=== PATIENT | female | born 1940 | race Caucasian/White ===

== ENCOUNTER 2016-07-30 18:26 | Emergency (ER) | payer MEDICARE, MEDICAID ==
[~2016-07-30] VITALS: Ht 157.4 cm; Wt 95.3 kg
[~2016-07-30 18:26] MED LIST: ACCU-CHEK AVIVA PLUS; ACID REDUCER; AMBIEN10 MG PO; ASPIRIN ADULT L81 M1 PO; CLONAZEPAM1 MG PO; COLACE100 MG PO; CYCLOBENZAPRINE10 MG PO; CYMBALTA60 MG PO; DILTIAZEM240 M1 PO; DOXYCYCLINE MO100 MG PO; DULOXETINE HCL DR 60; DUONEB 3 MG/3 ML3 M1 INH; DUONEB 3 MG/3 ML3 M1 NEB; FUROSEMIDE40 MG PO; GABAPENTIN600 MG PO; HYDROCODONE BIT1 T11 PO; KLOR-CON M1010 MEQ PO; LORAZEPAM1 MG PO; METFORMIN HCL500 MG PO; OMEPRAZOLE40 MG PO; OXYCODONE-ACETAMINOP; PREDNISONE5 MG PO; PRILOSEC40 M1 PO; ROPINIROLE HCL 1 MG; SIMVASTATIN10 MG PO; SINGULAIR5 MG PO; SYMBICORT1 AE1 INH; ZESTRIL10 MG PO
[2016-07-30] MEDS ORDERED: MECLIZINE HCL25 M2 PO (18:48)
[2016-07-30] MEDS ORDERED: MELATONIN5 M7 PO (18:49)
[2016-07-30] MEDS ORDERED: SINGULAIR10 M1 PO (18:51)
[2016-07-30] MEDS ORDERED: AMBIEN10 M1 JT (18:52)
[2016-07-30] MEDS ORDERED: ZYLOPRIM100 MG PO (18:53)
[2016-07-30] MEDS ORDERED: FOLIXAPURE5000 UNIT PO (18:54)
[2016-07-30] MEDS ORDERED: TURMERIC500 MG PO (18:54)
[2016-07-30] MEDS ORDERED: MAPAP500 MG PO (18:55)
[2016-07-30 19:39] LABS: BASO # 0.1 10*3/uL (0.0-0.1); BASO % 0.8 % (0.0-1.0); EOS # 0.2 10*3/uL (0.0-0.4); EOS % 2.2 % (1.0-4.0); HEMATOCRIT 45.6 % (37.0-47.0); HEMOGLOBIN 14.8 g/dl (12.0-16.0); IG # 0.1 10*3/uL (0.0-0.1); LYMPH # 1.2 10*3/uL (1.3-4.4); LYMPH % 16.6 % (27.0-41.0); MEAN CELL VOLUME 94.6 fl (81.0-99.0); MEAN CORPUSCULAR HGB 30.7 pg (27.0-31.0); MEAN CORPUSCULAR HGB CONC 32.5 g/dl (33.0-37.0); MEAN PLATELET VOLUME 11.2 fl (9.6-12.3); MONO # 0.6 10*3/uL (0.1-1.0); MONO % 8.4 % (3.0-9.0); NEUT # 5.2 10*3/uL (2.3-7.9); NEUT % 71.3 % (47.0-73.0); PLATELET COUNT AUTOMATED 261 10*3/uL (130-400); RED BLOOD COUNT 4.82 10*6/uL (4.10-5.10); RED CELL DISTRI WIDTH 14.5 % (0-14.5); WHITE BLOOD COUNT 7.3 10*3/uL (4.8-10.8)
[2016-07-30 19:54] LABS: ALBUMIN 3.2 gm/dl (3.1-4.5); ALKALINE PHOSPHATASE 128 U/L (45-117); BILIRUBIN, TOTAL 0.3 mg/dl (0.2-1.0); BUN 19 mg/dl (7-24); C-REACTIVE PROTEIN 0.34 MG/DL (0-0.3); CARBON DIOXIDE 28 mmol/L (21-32); CHLORIDE 109 mmol/L (98-107); EST GLOM FILT AFRICAN AMERICAN > 60 ml/min; GLUCOSE 108 mg/dL (65-99); MAGNESIUM 2.1 mg/dL (1.5-2.1); SGOT/AST 17 IU/L (3-35); SGPT/ALT 26 U/L (12-78); SODIUM 144 mmol/L (136-145); TOTAL PROTEIN 6.7 gm/dL (6.4-8.2)
[2016-07-30 19:57] LABS: TROPONIN I < 0.015 ng/ml (<0.5)
[2016-07-30 20:30] VITALS: BP 118/96
[2016-07-30 20:57] LABS: BILIRUBIN NEGATIVE (NEGATIVE); BLOOD NEGATIVE (NEGATIVE); CLARITY CLEAR (CLEAR); COLOR YELLOW (YELLOW); GLUCOSE NEGATIVE (NEGATIVE); KETONE NEGATIVE (NEGATIVE); LEUKO ESTERASE NEGATIVE (NEGATIVE); NITRITE NEGATIVE (NEGATIVE); PROTEIN NEGATIVE (NEGATIVE); UROBILINOGEN 0.2 E.U./dl (0.2-1.0)
[2016-07-30 21:26] LABS: EPITHELIAL CELLS 0-1; URINE REFLEX COMMENT NO (NO)
[2016-08-01] MEDS ORDERED: AMBIEN10 M1 PO (13:23)
[2016-08-01] MEDS ORDERED: NORCO 7.5-3251 EACH PO (16:31)
[2016-08-27] MEDS ORDERED: AMBIEN10 M1 PO (12:37)
[2016-08-27] MEDS ORDERED: BREO ELLIPTA 11 EACH IH (12:38)
[2016-08-27] MEDS ORDERED: OMEGA-3 FLAXS1000 MG PO (12:44)
[2016-08-27] MEDS ORDERED: PERCOCET 325 MG1 TA3 PO (12:46)
[2016-08-29] MEDS ORDERED: ACETAMINOPHEN-H1 TA2 PO (11:17)
== END 2016-07-31 00:23 | disposition home or self-care (01) ==
LOC: ED 18:26
PROVIDERS: Emergency Medicine Emergency Medical Services
DX: M54.40 Lumbago with sciatica, unspecified side (principal); Z79.82 Long term (current) use of aspirin; Z79.899 Other long term (current) drug therapy; Z88.5 Allergy status to narcotic agent; W07.XXXA Fall from chair, initial encounter; Y93.89 Activity, other specified; Y92.009 Unspecified place in unspecified non-institutional (private) residence as the place of occurrence of the external cause; Y99.9 Unspecified external cause status

== ENCOUNTER 2016-08-01 13:06 | Inpatient (IN) | payer MEDICARE, MEDICAID ==
[~2016-08-01] VITALS: Ht 157.5 cm; Wt 95.3 kg
--- NOTE | ~2016-08-01 | PR ---
[place], [place] PROGRESS NOTE NAME: SANCHEZ POLANCO [facility] #: [id number] UNIT #: [id number] ROOM: 416 DOCTOR: ARDEN GEE MD BIRTHDATE: [birth year] DOS: 08/06/2016 SUBJECTIVE: The patient is doing fine without any new complaints. OBJECTIVE: VITAL SIGNS: Blood pressure is 120/72, pulse is 64, respirations 18, temperature 97.4. LUNGS: Diminished breath sounds. HEART: Regular. ABDOMEN: Obese. EXTREMITIES: Without any edema. ASSESSMENT AND PLAN: 1. Severe lumbar degenerative disease with disk bulging and spinal stenosis. Failure to thrive with falls. The patient to go to rehab center. She is undecided as where she is going. Discussed with case management also. I will discharge the patient, pending 2. pre-certification from the insurance company for placement to a residential. ARDEN GEE MD CM:PNTRANS [phone] ARDEN GEE MD 09/10/16 1125 interface
--- NOTE | ~2016-08-01 | PR ---
[place], [place] PROGRESS NOTE NAME: SANCHEZ POLANCO [facility] #: [id number] UNIT #: [id number] ROOM: 416 DOCTOR: ARDEN GEE MD BIRTHDATE: [birth year] DOS: SUBJECTIVE: The patient is doing fine without any complaints. OBJECTIVE: VITAL SIGNS: Graphic trend shows a pressure 115/59, pulse of 62, respirations 16, temperature 98.1. LUNGS: Diminished breath sounds. HEART: Regular. ABDOMEN: Obese, soft. EXTREMITIES: Without any edema. ASSESSMENT AND PLAN: 1. Mechanical fall with adult failure to thrive. The patient to go to rehab center. Social Service will be consulted, discussed with the patient, who agrees. 2. Lumbar spinal stenosis after the fall, she has had worsening of her pain. MRI is pending. Ordered low dose steroids for treatment of the spinal stenosis. 3. Type 2 diabetes mellitus, on oral antidiabetics. Blood sugars on the high side, probably from the steroids. We will continue to monitor. ARDEN GEE MD CM:PNTRANS [phone] ARDEN GEE MD 08/03/162235 interface
--- NOTE | ~2016-08-01 | DS ---
[place], [place] DISCHARGE SUMMARY NAME: SANCHEZ POLANCO [facility] #: [id number] UNIT #: [id number] ROOM: 416 DOCTOR: ARDEN GEE MD BIRTHDATE: [birth year] DOS: 08/06/2016 HOSPITAL COURSE: The patient is 75-year-old. The patient is very well known to us. The patient had a fall at home and has been unable to walk, so she came into the Emergency Room after being found on the floor for a few hours for about 7 hours. After being admitted to the hospital, she was placed on pain medications, IV steroids for possible spinal stenosis. PT, OT consult and social service consult was obtained. An MRI of the lumbar spine was ordered shows diffuse multilevel degenerative joint disease with disk bulge throughout the lumbar spine with nerve root compression of L3 and L4. The patient was unable to lift the left leg off the bed when she first came in with a power of about grade 2. After the IV steroids were given, the patient's power is improved to about grade 4. PT feels that the patient would benefit from a mcc, and we are trying to place her to a mcc today. We also waiting for the precertification from the insurance company. The patient may benefit from pain clinic appointment. DISCHARGE MEDICATIONS: Will be, Lyrica 50 mg daily, Lasix 40 mg daily, potassium 10 daily, clonazepam 1 mg twice a day, metformin 500 daily, simvastatin 10 daily, lisinopril 10 daily, diltiazem 240 daily, duloxetine 60 at bedtime, aspirin 81 daily, omeprazole 40 daily, Symbicort 160/4.5 twice a day, Colace 200 at bedtime, meclizine 25 q.8 hours p.r.n., Singulair 10 daily, allopurinol 100 daily, turmeric root 500 mg daily, flaxseed, vitamin D3, folic acid 5000 units daily, Tylenol 1000 mg twice a day p.r.n., Ambien 10 at bedtime p.r.n., [place] 7.5 t.i.d. p.r.n. DISCHARGE DIAGNOSES: 1. Mechanical fall with difficulty to ambulate with ambulatory dysfunction. 2. 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 3. Lumbar spinal stenosis with nerve root compression of L3 and L4. 4. History of laminectomy. 5. Chronic pain syndrome. 6. Benign hypertension. 7. Mild intermittent asthma, controlled. 8. Type 2 diabetes mellitus. 9. Mixed hyperlipidemia. 10. Major depression, moderate. [place], [place] DISCHARGE SUMMARY NAME: SANCHEZ POLANCO UNIT #: [id number] ROOM: [facility] DOCTOR: ARDEN GEE MD BIRTHDATE: [birth year] ARDEN GEE MD CM:DISCHCARLOS [phone] ARDEN GEE MD 08/06/161820 interface
--- NOTE | ~2016-08-01 | PR ---
[place], [place] PROGRESS NOTE NAME[facility] [id number] UNIT #: [id number] ROOM: 416 DOCTOR: ARDEN GEE MD BIRTHDATE: [birth year] DOS: 08/05/2016 SUBJECTIVE: The patient states that she has no new complaints other than her chronic back pain. OBJECTIVE: VITAL SIGNS: Graphic trend shows a pressure of 139/75, pulse of 72, respirations 18, temperature 97.9. LUNGS: Clear. HEART: Regular. ABDOMEN: Obese, soft. EXTREMITIES: Without any edema. ASSESSMENT AND PLAN: 1. Failure to thrive, adult, for placement to a halfway home. We are waiting for certification from the insurance company. 2. Lumbar spinal stenosis with compression of the L3 and L4 nerve root with weakness of her legs. She was already on IV steroids, which has been tapered down. 3. Benign hypertension, controlled. 4. Type 2 diabetes mellitus with steroid-induced hyperglycemia. Blood sugars are coming down with steroid taper. ARDEN GEE MD CM:PNTRANS [phone] ARDEN GEE MD 08/05/16 2345 interface
--- NOTE | ~2016-08-01 | PR ---
[place], [place] PROGRESS NOTE NAME: SANCHEZ POLANCO [facility] #: [id number] UNIT #: [id number] ROOM: 416 DOCTOR: ARDEN GEE MD BIRTHDATE: [birth year] DOS: SUBJECTIVE: The patient continues to complain of back pain. OBJECTIVE: VITAL SIGNS: Graphic trend shows a pressure of 144/69, pulse of 81, respirations 18, temperature 97.8. LUNGS: Clear. HEART: Regular. ABDOMEN: Soft. EXTREMITIES: Without any edema. The left leg strength is improved. She is able to find left leg off the bed today, grade is about 3. MRI of the lumbar spine shows bmuczwgy-[id number] disk space narrowing with central disk protrusion of T12 and L1 as well as disk bulging of L1-L2, L2-L3, and L3-L4, and there is also compression of the L3 and L4 nerve roots, which most likely is responsible for her difficulty with ambulation. ASSESSMENT AND PLAN: 1. The patient with severe back pain following a fall and inability to ambulate and MRI showing multilevel degenerative changes with disk disease and disk protrusion and nerve root impingement of both L3 and L4, which most likely is responsible for continued weakness of the lower legs. I will start her on, for better pain control, Lidocaine was added and Neurontin will also be started. She did receive steroids for a few day to reduce the swelling. We can cut back on the steroids further today. 2. Failure to thrive with fall. The patient is planning to go to a halfway. Unfortunately, the place that she wanted to go is not in the network so we will have to look at another facility. 3. Benign hypertension, controlled. 4. Type 2 diabetes mellitus, non-insulin dependent. Blood sugars are better after the tapering of the steroids. ARDEN GEE MD CM:PNTRANS [id number] ARDEN GEE MD 08/04/16 1438 interface
--- NOTE | ~2016-08-01 | PR ---
[place], [place] PROGRESS NOTE NAME: SANCHEZ POLANCO [facility] #: [id number] UNIT #: [id number] ROOM: 416 DOCTOR: ARDEN GEE MD BIRTHDATE: [birth year] DOS: 08/01/2016 SUBJECTIVE: The patient continues to complain of a lot of pain. She states that the Dilaudid every 4 hours and the Jemison is not helping her. She has gotten up with help and goes to the bathroom, but has not really participated in any physical therapy. OBJECTIVE: VITAL SIGNS: Graphic trend shows pressure of 146/65, pulse 79, respirations 22, and temperature 98. LUNGS: Clear. HEART: Regular. ABDOMEN: Soft. EXTREMITIES: Without any edema. Strength in the lower legs are grade 3-4 bilaterally. ASSESSMENT AND PLAN: 1. Mechanical fall with ambulatory dysfunction for SNF placement. 2. Lumbar spinal stenosis with multilevel degenerative changes with nerve root compression of L3 and L4. Discussed with the patient that she will need to be seen in by surgeon to review her MRI report and may be require surgery for the nerve root compression. She has already had three different surgeries in the past of her lumbar spine area and may not be a candidate any longer for surgery, but that is to be determined by the surgeon, so when she goes to the nursing home home, an appointment needs to be made with Dr. Morales in [place] to discuss with the patient. The patient did not want to be transferred to [place] where her previous surgery was performed. 3. Benign hypertension, controlled. 4. Chronic pain. We will start her on fentanyl patch in addition to the Dilaudid and Jemison. ARDEN GEE MD CM:PNTRANS [phone] ARDEN GEE MD 08/07/16 0914 interface
--- NOTE | ~2016-08-01 | WRIGHTHP ---
[place], [place] PATIENT HISTORY AND PHYSICAL EXAM NAME: SANCHEZ POLANCO [facility] #: [id number] UNIT #: [id number] ROOM: 416 DOCTOR: ARDEN GEE MD BIRTHDATE: [birth year] DOS: 08/01/2016 HISTORY OF PRESENT ILLNESS: The patient is very well known to me. The patient comes in after a fall at home. She was initially seen in the Emergency Room on the after falling at home. She was brought to the Emergency Room with EMS. She was found on the floor, she apparently laid on the floor for about 7 hours, came to the Emergency Room, refused to get admitted. Yesterday she called the office and I spoke to her about coming back to the ER and possible admission and workup and treatment of intractable back pain. The patient this morning states that her Dilaudid is helping with the pain. She does not have any complaints of chest pains or palpitations, does not have any fever or chills. She has no strength in the left lower leg and is unable to lift the leg. PAST MEDICAL HISTORY: Significant for: 1. Chronic low back pain. 2. History of lumbar laminectomy, also morphine pump placement which she is no longer using as well as pain clinic visits. 3. Benign hypertension. 4. Type 2 diabetes mellitus. 5. Mixed hyperlipidemia. 6. Asthma, mild, intermittent controlled. MEDICATIONS: She is on currently are home meds, Symbicort 160 twice a day, allopurinol 100 daily, aspirin 81 daily, clonazepam 1 mg twice daily, diltiazem 240 daily, Colace 200 mg daily, Cymbalta 60 daily, Lasix 40 daily p.r.n., [place] 7.5 t.i.d. p.r.n., lisinopril 10 daily, meclizine 25 q.8 h., metformin 500 daily, montelukast 10 daily, omeprazole 40 daily, potassium 10 daily, simvastatin 10 daily, zolpidem 10 at bedtime. SOCIAL HISTORY: Nonsmoker, does not use any alcohol. PHYSICAL EXAMINATION: GENERAL: She is awake and alert and oriented, in some distress because of her back pain. VITAL SIGNS: Blood pressure is 124/66, pulse is 72, respirations 16, temperature 97.6. NECK: Supple. LUNGS: Diminished breath sounds, clear. HEART: Regular. ABDOMEN: Soft. EXTREMITIES: Without any edema. She was unable to lift the leg off her bed on the left side. The right leg she did not have any problem. She has significant tenderness in the ischial tuberosity area as well as entire low back. She has surgical scars on the lumbar area from previous surgeries. ASSESSMENT AND PLAN: 1. Mechanical fall. This is a patient who had a fall at home, was on the floor for about 7 hours before the family found her. She was seen in the Emergency Room and a CT of the head showed chronic small vessel ischemia, which is an old [place], [place] PATIENT HISTORY AND PHYSICAL EXAM NAME: SANCHEZ POLANCO UNIT #: [id number] ROOM: 416 DOCTOR: ARDEN GEE MD BIRTHDATE: [birth year] finding. At that time, the rhabdo was not checked, myoglobin was not ordered. 2. Chronic low back pain with history of lumbar spinal stenosis, on chronic pain management. MRI of the lumbar spine will be ordered. A low dose of IV steroids will be added. 3. Benign hypertension, controlled. 4. Type 2 diabetes mellitus. Blood sugars to be checked twice daily, especially now the patient is going to be on IV steroids. ARDEN GEE MD CM:HISPHYS:PATIENT HISTORY AND PHYSICAL EXAMINATION [phone] ARDEN GEE MD 09/10/16 1124 interface
[2016-08-01 13:06] VITALS: BP 131/72
[~2016-08-01 13:06] MED LIST changes: +AMBIEN10 M1 JT; +FOLIXAPURE5000 UNIT PO; +MAPAP500 MG PO; +MECLIZINE HCL25 M2 PO; +MELATONIN5 M7 PO; +SINGULAIR10 M1 PO; +TURMERIC500 MG PO; +ZYLOPRIM100 MG PO
[2016-08-01] MEDS ORDERED: AMBIEN10 M1 PO (13:23)
[2016-08-01 15:20] VITALS: BP 126/80
[2016-08-01 16:00] VITALS: BP 135/57
[2016-08-01 16:15] VITALS: BP 135/57
[2016-08-01] MEDS ORDERED: NORCO 7.5-3251 EACH PO (16:31)
[2016-08-01 20:00] VITALS: BP 106/58
[2016-08-02] VITALS: BP 135/53
[2016-08-02 08:00] VITALS: BP 124/66
[2016-08-02 16:00] VITALS: BP 115/59
[2016-08-02 20:00] VITALS: BP 138/67
[2016-08-03] VITALS: BP 123/67
[2016-08-03 08:00] VITALS: BP 115/59
[2016-08-03 16:00] VITALS: BP 118/60
[2016-08-03 20:00] VITALS: BP 143/67
[2016-08-04] VITALS: BP 144/69
[2016-08-04 08:00] VITALS: BP 130/70
[2016-08-04 16:00] VITALS: BP 144/68
[2016-08-05] VITALS: BP 139/75
[2016-08-05 08:00] VITALS: BP 126/72
[2016-08-05 16:00] VITALS: BP 138/76
[2016-08-06] VITALS: BP 150/67
[2016-08-06 08:00] VITALS: BP 120/72
[2016-08-06] MEDS ORDERED: LYRICA50 M1 PO (08:55)
[2016-08-06] MEDS ORDERED: NORCO 7.5-3251 EACH PO (08:55)
[2016-08-06 16:00] VITALS: BP 141/69
[2016-08-06 20:00] VITALS: BP 121/61
[2016-08-07] VITALS: BP 146/65
[2016-08-07 08:10] VITALS: BP 128/74
[2016-08-07] MEDS ORDERED: Duragesic 25 M25 MCG TD (08:27)
[2016-08-07] MEDS ORDERED: CLONAZEPAM1 MG PO (08:28)
[2016-08-07] MEDS ORDERED: AMBIEN10 M1 PO (08:28)
[2016-08-07] MEDS ORDERED: PREDNISONE10 MG PO (08:28)
[2016-08-07 16:00] VITALS: BP 124/84
[2016-08-27] MEDS ORDERED: AMBIEN10 M1 PO (12:37)
[2016-08-27] MEDS ORDERED: BREO ELLIPTA 11 EACH IH (12:38)
[2016-08-27] MEDS ORDERED: OMEGA-3 FLAXS1000 MG PO (12:44)
[2016-08-27] MEDS ORDERED: PERCOCET 325 MG1 TA3 PO (12:46)
[2016-08-29] MEDS ORDERED: ACETAMINOPHEN-H1 TA2 PO (11:17)
== END 2016-08-07 17:58 | disposition other institution (70) | DRG 552 ==
LOC: ED 13:06 → 4E 14:04 → EDHOLD 14:04 → 4E 14:19
DX: M48.06 Spinal stenosis, lumbar region (principal); E11.9 Type 2 diabetes mellitus without complications; F32.1 Major depressive disorder, single episode, moderate; M51.36 Other intervertebral disc degeneration, lumbar region; G89.4 Chronic pain syndrome; I10 Essential (primary) hypertension; J45.20 Mild intermittent asthma, uncomplicated; E78.2 Mixed hyperlipidemia; W19.XXXA Unspecified fall, initial encounter; R62.7 Adult failure to thrive; Z79.82 Long term (current) use of aspirin; Z90.49 Acquired absence of other specified parts of digestive tract; Z90.710 Acquired absence of both cervix and uterus; Z79.899 Other long term (current) drug therapy; Z98.890 Other specified postprocedural states; Z82.49 Family history of ischemic heart disease and other diseases of the circulatory system; Z81.8 Family history of other mental and behavioral disorders

== ENCOUNTER 2016-09-26 21:43 | Inpatient (IN) | payer MEDICARE, MEDICAID ==
[~2016-09-26] VITALS: Ht 157.4 cm; Wt 99.5 kg
--- NOTE | ~2016-09-26 | PR ---
[place], [place] PROGRESS NOTE NAME: SANCHEZ POLANCO [facility] #: [id number] UNIT #: [id number] ROOM: 421 DOCTOR: ARDEN GEE MD BIRTHDATE: [birth year] DOS: 09/28/2016 SUBJECTIVE: The patient is doing fine without any complaints other than chronic pain. OBJECTIVE: VITAL SIGNS: Graphic trend shows a pressure of 135/57, pulse of 85, respirations 20, temperature 97.8. LUNGS: Diminished breath sounds, clear. HEART: Regular. ABDOMEN: Obese. EXTREMITIES: Without any edema. ASSESSMENT AND PLAN: 1. Lumbar degenerative spinal stenosis with nerve root compression of L3-L4. The patient is scheduled to have surgery in [place] on 10/10/2016. 2. Adult failure to thrive with multiple falls. The patient is to go to rehab. She has agreed to go to [facility]. Discussed with case management. They will start the precertification process. 3. Benign hypertension, controlled. 4. Possible urinary tract infection. Urine has been sent for culture. 5. Lactic acidosis, which has resolved. ARDEN GEE MD CM:PNTRANS [phone] ARDEN GEE MD 09/28/16 0758 interface
--- NOTE | ~2016-09-26 | DS ---
[place], [place] DISCHARGE SUMMARY NAME: SANCHEZ POLANCO UNIT #: [id number] ROOM: 421 DOCTOR: ARDEN GEE MD BIRTHDATE: [birth year] DOS: 09/29/2016 DIAGNOSES: 1. Fall at home with acute lumbago. 2. Chronic low back pain from degenerative lumbar spinal stenosis with no root compression of L3-L4, for surgery at [facility] on 10/10/2016. 3. Chronic pain, with history of multiple back surgeries. 4. Benign hypertension. 5. Type 2 diabetes mellitus, non-insulin dependent. 6. Mixed hyperlipidemia. 7. Major depression, moderate, recurrent. 8. Failure to thrive, adult. HOSPITAL COURSE: The patient is 75 years old. The patient is very well known to us, comes in after a fall at home. Please refer H and P dictated by Dr. Zamora for details. She was hypokalemic supplementation was given. BMP is pending. PT/OT oncology social worker and Dr. Day were consulted. The patient has been accepted at [facility]. Dr. Day advised continued medical management. The patient's pain is controlled. The plan is to discharge her to [facility] for PT, OT, and her diet is regular, blood sugars to be checked every other day. PT, OT consultation. DISCHARGE MEDICATIONS: Fentanyl 25 mcg q.72 hours, hydrocodone/acetaminophen 1 tablet q.4 hours p.r.n., Lyrica 50 daily, metformin 500 daily, simvastatin 10 daily, lisinopril 10 daily, diltiazem 240 daily, duloxetine 60 daily, aspirin 81 daily, omeprazole 40 daily, Colace 200 at bedtime, meclizine 25 q.8 hours, Singulair 10 daily, allopurinol 100 daily, vitamin D 5000 units daily, Tylenol 1000 mg twice daily, Breo Ellipta 1 inhalation daily, Klonopin 1 mg twice daily and zolpidem 10 at bedtime p.r.n. [place], [place] DISCHARGE SUMMARY NAME: SANCHEZ POLANCO UNIT #: [id number] ROOM: 421 DOCTOR: ARDEN GEE MD BIRTHDATE: [birth year] ARDEN GEE MD CM:DEBORAH [phone] ARDEN GEE MD 10/01/16 1237 interface
--- NOTE | ~2016-09-26 | PR ---
[place], [place] PROGRESS NOTE [id number] UNIT #: [id number] ROOM: 421 DOCTOR: ARDEN GEE MD BIRTHDATE: [birth year] DOS: 09/29/2016 SUBJECTIVE: The patient is doing fine without any complaints. Denies any chest pains, palpitations or shortness of breath. She has chronic back pain. OBJECTIVE: VITAL SIGNS: Blood pressure is 114/62, pulse of 80, respirations 18 and temperature 97.8. LUNGS: Diminished breath sounds. No wheezes, rales or rhonchi heard. HEART: Regular. ABDOMEN: Obese. EXTREMITIES: No edema. ASSESSMENT AND PLAN: 1. Frailty with falls. 2. Lumbar degenerative spinal stenosis with L4-L5 nerve root compression for surgery at [place] on 10/10/2016. 3. Failure to thrive. The patient to go to [facility] for physical therapy and occupational therapy today. ARDEN GEE MD CM:PNTRANS [phone] ARDEN GEE MD 09/29/16 1026 interface
--- NOTE | ~2016-09-26 | WRIGHTHP ---
[place], [place] PATIENT HISTORY AND PHYSICAL EXAM NAME: SANCHEZ POLANCO [facility] #: [id number] UNIT #: [id number] ROOM: 421 DOCTOR: NITIN SIMMONS MD BIRTHDATE: [birth year] DOS: 09/27/2016 HISTORY OF PRESENT ILLNESS: 1. The patient is a 75-year-old female with past medical history of diffuse degenerative joint disease of the lumbar spine. 2. Lumbar spinal stenosis with nerve root compression at L3-L4. 3. History of previous laminectomy. 4. Chronic pain syndrome. 5. Benign essential hypertension. 6. Type 2 diabetes mellitus. 7. Mixed hyperlipidemia. 8. Major depression, moderate. 9. Obesity. The patient with chronic lower back pains scheduled for decompression surgery next month. According to the patient, came in for 2 falls at home. The patient states she did not lose consciousness or hit her head, but she fell down because she was feeling weak. Prior to this, she had a 2-1/2 weeks physical therapy at [facility]. No chest pain, no shortness of breath. No other GI or urinary symptoms, no seizures. REVIEW OF SYSTEMS: Reviewed. LUNGS: No increasing shortness of breath or wheezing. GASTROINTESTINAL: No nausea, vomiting, diarrhea, constipation. CARDIOVASCULAR: No chest pains or palpitations. FAMILY HISTORY: Noncontributory. ALLERGIES: No known drug allergies. MEDICATIONS: Singulair, metformin, lisinopril, aspirin, allopurinol, simvastatin, Colace, Cymbalta, meclizine, Dulera, diltiazem, omeprazole, Lyrica, Ambien, clonazepam, fentanyl patch, Vicodin. PHYSICAL EXAMINATION: GENERAL: Alert and oriented x 3, obese, in no visible distress with generalized weakness. HEENT AND NECK: Extraocular movements are intact. Sclerae are anicteric. Oral mucosa is moist and clean. No obvious facial weakness. Neck is supple without any lymphadenopathy. No thyromegaly. No JVD. No carotid arterial bruits. LUNGS: Clear to auscultation. No wheezing. No rhonchi. CARDIOVASCULAR SYSTEM: Heart rate is regular in rate and rhythm. S1 and S2 normally audible. No significant murmur or any other abnormal cardiac sounds. ABDOMEN: Soft, nontender. No obvious organomegaly. Bowel sounds are present. No obvious herniation. EXTREMITIES: Without significant cyanosis or edema. Warm to touch. CENTRAL NERVOUS SYSTEM: Alert and oriented x 3. Cranial nerves II-XII are intact. Speech is normal. The patient is able to move all extremities. Normal muscle strength. Deep tendon reflexes are equal on both sides. Plantars were downgoing. [place], [place] PATIENT HISTORY AND PHYSICAL EXAM [id number] #: [id number] ROOM: [facility] DOCTOR: NITIN SIMMONS MD BIRTHDATE: [birth year] IMPRESSION: The patient with fall at home and significant lower back pains with history of degenerative joint disease and history of decompression laminectomy in lower back. The patient admitted for failure to thrive and falls at home and started on physical therapy and pain control. I am also getting a social service consult for placing her back on a senior care facility for continued rehabilitation until she can go for her surgery. 1. Adult failure to thrive and recurrent falls at home with high risk for injury. During last fall, the patient unable to get help and had to drag herself on the floor. The patient is a good candidate for [facility] ____ so she can get help. 2. Hypokalemia, which will be treated with potassium supplements. I will repeat a potassium level again tomorrow. 3. Consult was taken with orthopedic surgeon, Dr. Day for her lower back pains. The patient x-rays and CAT scans do not show any acute abnormality. 4. Anemia, no leukocytosis. Chest x-ray was normal. 5. Stage III chronic kidney disease. 6. Benign essential hypertension with controlled blood pressures to be monitored. 7. Type 2 diabetes mellitus. Monitor blood sugars and adjust treatment as necessary. Keep her on no concentrated sweet diet. 8. Acute over chronic lower back pains. The patient is controlled with her Vicodin and also p.r.n. Dilaudid IV. 9. We are taking fall precautions and bed sore precaution and turning her every 2 hours as she was using an air mattress. NITIN SIMMONS MD CM:HISPHYS:PATIENT HISTORY AND PHYSICAL EXAMINATION [phone] NITIN SIMMONS MD 09/27/161925 interface
[~2016-09-26 21:43] MED LIST changes: +ACETAMINOPHEN-H1 TA2 PO; +AMBIEN10 M1 PO; +BREO ELLIPTA 11 EACH IH; +Duragesic 25 M25 MCG TD; +LYRICA50 M1 PO; +NORCO 7.5-3251 EACH PO; +OMEGA-3 FLAXS1000 MG PO; +PERCOCET 325 MG1 TA3 PO; +PREDNISONE10 MG PO
[2016-09-26 22:20] LABS: BASO # 0.1 10*3/uL (0.0-0.1); BASO % 0.7 % (0.0-1.0); EOS # 0.2 10*3/uL (0.0-0.4); EOS % 2.7 % (1.0-4.0); HEMOGLOBIN 13.2 g/dl (12.0-16.0); LYMPH # 1.6 10*3/uL (1.3-4.4); LYMPH % 19.5 % (27.0-41.0); MEAN CELL VOLUME 94.7 fl (81.0-99.0); MEAN CORPUSCULAR HGB 30.5 pg (27.0-31.0); MEAN CORPUSCULAR HGB CONC 32.2 g/dl (33.0-37.0); MONO # 0.9 10*3/uL (0.1-1.0); MONO % 10.8 % (3.0-9.0); NEUT # 5.4 10*3/uL (2.3-7.9); NEUT % 65.8 % (47.0-73.0); PLATELET COUNT AUTOMATED 228 10*3/uL (130-400); RED BLOOD COUNT 4.33 10*6/uL (4.10-5.10); RED CELL DISTRI WIDTH 13.9 % (0-14.5); WHITE BLOOD COUNT 8.2 10*3/uL (4.8-10.8)
[2016-09-26 22:29] LABS: PROTHROMBIN TIME 10.6 SECONDS (9.0-12.4)
[2016-09-26 22:37] LABS: ALKALINE PHOSPHATASE 127 U/L (45-117); BILIRUBIN, TOTAL 0.4 mg/dl (0.2-1.0); BUN 13 mg/dl (7-24); CARBON DIOXIDE 24 mmol/L (21-32); CHLORIDE 106 mmol/L (98-107); EST GLOM FILT AFRICAN AMERICAN 53 ml/min; GLUCOSE 159 mg/dL (65-99); MAGNESIUM 1.9 mg/dL (1.5-2.1); POTASSIUM 3.4 mmol/L (3.5-5.1); SGOT/AST 19 IU/L (3-35); SGPT/ALT 22 U/L (12-78); SODIUM 145 mmol/L (136-145); TOTAL PROTEIN 6.7 gm/dL (6.4-8.2)
[2016-09-26 22:44] LABS: TROPONIN I < 0.015 ng/ml (<0.045)
[2016-09-27 00:18] LABS: LA>2 REFLEX 2 HR DRAW NOW
[2016-09-28 01:59] LABS: BILIRUBIN NEGATIVE (NEGATIVE); BLOOD NEGATIVE (NEGATIVE); CLARITY CLEAR (CLEAR); COLOR YELLOW (YELLOW); GLUCOSE NEGATIVE (NEGATIVE); KETONE NEGATIVE (NEGATIVE); LEUKO ESTERASE NEGATIVE (NEGATIVE); NITRITE NEGATIVE (NEGATIVE); PROTEIN NEGATIVE (NEGATIVE); SPECIFIC GRAVITY >= 1.030 (1.005-1.030); UROBILINOGEN 0.2 E.U./dl (0.2-1.0)
[2016-09-28 02:05] LABS: BACTERIA TRACE; URINE REFLEX COMMENT YES (NO)
[2016-09-29] MEDS ORDERED: ACETAMINOPHEN-H1 TA2 PO (09:46)
[2016-09-29] MEDS ORDERED: CLONAZEPAM1 MG PO (09:46)
[2016-09-29] MEDS ORDERED: LYRICA50 M1 PO (09:46)
[2016-09-29] MEDS ORDERED: Duragesic 25 M25 MCG TD (09:46)
[2016-09-29] MEDS ORDERED: AMBIEN10 M1 PO (09:46)
[2016-09-29 11:01] LABS: BUN 16 mg/dl (7-24); CARBON DIOXIDE 26 mmol/L (21-32); CHLORIDE 112 mmol/L (98-107); EST GLOM FILT AFRICAN AMERICAN > 60 ml/min; GLUCOSE 118 mg/dL (65-99); POTASSIUM 4.2 mmol/L (3.5-5.1); SODIUM 147 mmol/L (136-145)
== END 2016-09-29 14:27 | disposition other institution (70) | DRG 552 ==
LOC: ED 21:43 → EDHOLD 09-27 00:31 → 4E 09-27 00:31
PROVIDERS: Emergency Medicine Emergency Medical Services; Internal Medicine
DX: M48.06 Spinal stenosis, lumbar region (principal); N17.9 Acute kidney failure, unspecified; E87.2 Acidosis; I13.0 Hypertensive heart and chronic kidney disease with heart failure and stage 1 through stage 4 chronic kidney disease, or unspecified chronic kidney disease; I50.30 Unspecified diastolic (congestive) heart failure; F32.1 Major depressive disorder, single episode, moderate; Z68.41 Body mass index [BMI] 40.0-44.9, adult; D64.9 Anemia, unspecified; E11.22 Type 2 diabetes mellitus with diabetic chronic kidney disease; J45.909 Unspecified asthma, uncomplicated; N18.3 Chronic kidney disease, stage 3 (moderate); E66.9 Obesity, unspecified; E78.2 Mixed hyperlipidemia; G89.4 Chronic pain syndrome; E87.6 Hypokalemia; R62.7 Adult failure to thrive; M51.36 Other intervertebral disc degeneration, lumbar region; M10.9 Gout, unspecified

== ENCOUNTER 2016-10-14 00:53 | Emergency (ER) | payer MEDICARE, MEDICAID ==
[~2016-10-14] VITALS: Ht 160 cm; Wt 127.0 kg
[2016-10-14 01:23] LABS: BASO % 0.5 % (0.0-1.0); EOS # 0.2 10*3/uL (0.0-0.4); EOS % 2.6 % (1.0-4.0); HEMATOCRIT 33.7 % (37.0-47.0); HEMOGLOBIN 10.9 g/dl (12.0-16.0); IG # 0.1 10*3/uL (0.0-0.1); LYMPH % 15.3 % (27.0-41.0); MEAN CELL VOLUME 92.6 fl (81.0-99.0); MEAN CORPUSCULAR HGB 29.9 pg (27.0-31.0); MEAN CORPUSCULAR HGB CONC 32.3 g/dl (33.0-37.0); MEAN PLATELET VOLUME 10.8 fl (9.6-12.3); MONO # 0.9 10*3/uL (0.1-1.0); MONO % 13.6 % (3.0-9.0); NEUT # 4.3 10*3/uL (2.3-7.9); NEUT % 67.1 % (47.0-73.0); PLATELET COUNT AUTOMATED 193 10*3/uL (130-400); RED BLOOD COUNT 3.64 10*6/uL (4.10-5.10); RED CELL DISTRI WIDTH 13.2 % (0-14.5); WHITE BLOOD COUNT 6.5 10*3/uL (4.8-10.8)
[2016-10-14 01:32] LABS: PROTHROMBIN TIME 10.1 SECONDS (9.0-12.4)
[2016-10-14 01:40] LABS: ALBUMIN 2.6 gm/dl (3.1-4.5); ALKALINE PHOSPHATASE 116 U/L (45-117); BILIRUBIN, TOTAL 0.3 mg/dl (0.2-1.0); BUN 14 mg/dl (7-24); CARBON DIOXIDE 30 mmol/L (21-32); CHLORIDE 105 mmol/L (98-107); CPK 47 U/L (26-192); EST GLOM FILT AFRICAN AMERICAN > 60 ml/min; GLUCOSE 124 mg/dL (65-99); POTASSIUM 3.7 mmol/L (3.5-5.1); SGOT/AST 12 IU/L (3-35); SGPT/ALT 19 U/L (12-78); SODIUM 142 mmol/L (136-145); TOTAL PROTEIN 6.5 gm/dL (6.4-8.2)
[2016-10-14 01:41] LABS: CKMB 1.2 ng/ml (0.5-3.6); TROPONIN I < 0.015 ng/ml (<0.045)
[2016-10-14 02:16] VITALS: BP 154/87
== END 2016-10-14 03:42 | disposition other institution (70) ==
LOC: ED 00:53
PROVIDERS: Emergency Medicine
DX: G89.18 Other acute postprocedural pain (principal); J98.11 Atelectasis; F41.9 Anxiety disorder, unspecified; R07.89 Other chest pain; E11.9 Type 2 diabetes mellitus without complications; I10 Essential (primary) hypertension; I99.8 Other disorder of circulatory system; J45.909 Unspecified asthma, uncomplicated; Z79.899 Other long term (current) drug therapy; Z79.82 Long term (current) use of aspirin

== ENCOUNTER 2016-10-17 13:42 | Inpatient (IN) | payer MEDICARE, MEDICAID ==
[~2016-10-17] VITALS: Ht 157.4 cm; Wt 101.6 kg
--- NOTE | ~2016-10-17 | CON ---
[place], [place] REPORT OF CONSULTATION NAME: SANCHEZ POLANCO [facility] #: [id number] UNIT #: [id number] ROOM: 316 DOCTOR: TROY WALTERSNITIN J BIRTHDATE: [birth year] DOS: 10/18/2016 ATTENDING PHYSICIAN: Hao Camarena MD HISTORY OF PRESENT ILLNESS: The patient is a 75-year-old female known to our practice, presently admitted to the behavioral health unit under care of Dr. Camarena. She has a past medical history of, 1. Generalized weakness and adult failure to thrive with a recent fall at home. 2. Chronic lower back pain and lumbar spondylosis, also spinal stenosis with nerve root compression at L3-4, status post decompression surgery at [facility] on 10/10/2016. 3. Chronic back pain with multiple back surgeries. 4. Benign essential hypertension. 5. Type 2 diabetes mellitus, non-insulin dependent. 6. Mixed hyperlipidemia. 7. Major depression, recurrent, moderate. 8. Vitamin D deficiency. 9. Gouty arthritis. 10. GERD and esophagitis. 11. Chronic constipation. 12. Type 2 diabetes mellitus. The patient presently asymptomatic. No chest pain, no shortness of breath, no GI or urinary symptoms. REVIEW OF SYSTEMS: LUNGS: No increasing shortness of breath or wheezing. GASTROINTESTINAL: No nausea, vomiting, diarrhea, or constipation. CARDIOVASCULAR SYSTEM: No chest pain, no palpitations. The patient had recent surgery to her lower back with mirian still in place. FAMILY HISTORY: Noncontributory. SOCIAL HISTORY: Lives by herself normally. Denies smoking cigarettes, alcohol and drug abuse. ALLERGIES: No known drug allergies. PRESENT MEDICATIONS: Hydroxyzine, Cymbalta, MiraLax, metformin, lisinopril, diltiazem, aspirin, allopurinol, omeprazole, simvastatin, Singulair, , Latuda, DuoNebs, Colace, Geodon p.r.n., Lyrica, Augmentin and oxycodone p.r.n. PHYSICAL EXAMINATION: GENERAL: Alert, oriented x 3, in no visible distress with moderate obesity, generalized weakness. HEENT AND NECK: Extraocular movements are intact. Sclerae are anicteric. Oral mucosa is moist and clean. No obvious facial weakness. Neck is supple without any lymphadenopathy. No thyromegaly. No JVD. No carotid arterial bruits. LUNGS: Clear to auscultation. No wheezing. No rhonchi. [place], [place] REPORT OF CONSULTATION NAME: SANCHEZ POLANCO UNIT #: [id number] ROOM: [facility] DOCTOR: NITIN SIMMONS MD BIRTHDATE: [birth year] CARDIOVASCULAR SYSTEM: Heart rate is regular in rate and rhythm. S1 and S2 normally audible. No significant murmur or any other abnormal cardiac sounds. ABDOMEN: Soft, nontender. No obvious organomegaly. Bowel sounds are present. No obvious herniation. EXTREMITIES: Without significant cyanosis or edema. Warm to touch. CENTRAL NERVOUS SYSTEM: Alert and oriented x 3. Cranial nerves II-XII are intact. Speech is normal. The patient is able to move all extremities. Normal muscle strength. Deep tendon reflexes are equal on both sides. Plantars were downgoing. BACK: [place] in place in lower back. No signs of infection. IMPRESSION: 1. The patient with major depression, recurrent, moderate, being treated by Dr. Camarena as mentioned above. The patient is on Latuda and Cymbalta. 2. Chronic lower back pains, recent decompression surgery for spinal stenosis with mirian in place. We will put a dry dressing on the mirian and they are not due to come out for another few days. 3. Adult failure to thrive and generalized weakness. The patient to be started on physical therapy. 4. Type 2 diabetes mellitus. Blood sugars are reasonably controlled. I will continue her metformin. 5. Mixed hyperlipidemia treated with simvastatin. 6. Benign essential hypertension. Blood pressure is being monitored and controlled. The patient on lisinopril and diltiazem. NITIN SIMMONS MD CM:CONSTR:REPORT OF CONSULTATION 55 10/19/16 0415 interface
--- NOTE | ~2016-10-17 | PR ---
[place], [place] PROGRESS NOTE NAME: SANCHEZ POLANCO [facility] #: [id number] UNIT #: [id number] ROOM: 316 DOCTOR: ANNE STAFFORD BULMARO BIRTHDATE: [birth year] DOS: 10/20/2016 CHIEF COMPLAINT: The patient just yelled at me. SUMMARY OF VISIT: The patient was interviewed in the quiet area across from the nurses' station. She could be heard immediately upon entering the unit, just yelling "help me, get me out of here." When I went in there, she just started hollering at me about being in the [place] chair and she wanted to go back to bed. The patient is currently in the [place] chair because when she was put back to bed yesterday, on 3 or 4 separate occasions, she tried to get out of the bed and her legs are not strong enough to hold herself up, she has very poor safety awareness. This actually happened at the care home she was at and she fell, so she was put into the [place] chair to still allow her to recline and sleep, but also to be able to help keep her from harming herself, very mean, we just say horrible things to you, just trying to belittle you. Nursing noted that she started with the tremors yesterday, she did, this was going on when I was examining her in her room, but when she started yelling at me and I started asking her questions requiring her to respond, the tremors stopped. So I do not know if it just she is putting this on and she cannot multitask and continue doing the tremors when I am having her think and process or what. I am going to keep an eye on this. Dr. Camarena did start her on Cogentin yesterday for EPS. Nursing also noted that she did not sleep at all last night, she yelled, was mean to people. They did note also that she does seem to be responding to some type of external stimuli, but they cannot kind of put their finger on it nor can I. She has multiple somatic presentations and their complaints, was saying that she does not know why we are giving her pain meds that are not doing any good. When I offered to stop them, she yelled at me and said "you will do no such thing. You do not touch my pain meds." It should be noted that the patient has a history of overdosing on her pain medications. She is definitely a handful today. She has not stopped yelling and belittling people since I have been on the unit. As soon as she sees someone, she starts in. When I told her that what she is doing is very disruptive, can we come out of it from a calmer standpoint, she informed me she does not care that she is disruptive, that we are all incompetent and everybody else is just crazy. MENTAL STATUS: Alert and oriented to person, place, approximate time. I cannot tell about her memory. I do not know if she is putting on or if there is really some gaps going on. She will not talk to me about depression, but she is definitely irritated and agitated. I did not really get a read of anxious undertones. I know Dr. Camarena stopped the Latuda in lieu of Seroquel as an off label use to help decrease some of her anxiety and may be helping. I do not know if she is truly having delusions and responding to external stimuli or she is doing that for our benefit. Some of her behaviors as far as the twitching, the EPS, she does not do when you are out of eyesight and it gets worse when you are in her presence or like when I was assessing her and asking her multiple questions, she was not able to maintain the leg movements and arm movements and still answered my tough questions. So, I am not sure what is going on with regards to that. There is no alexx or hypomania. I have not seen anything overtly psychotic or hallucinations. [place], [place] PROGRESS NOTE NAME: SANCHEZ POLANCO [facility] #: [id number] UNIT #: [id number] ROOM: [facility] DOCTOR: ANNE STAFFORD BIRTHDATE: [birth year] PLAN: Dr. Camarena maxed out her Cymbalta to 60 mg b.i.d. to help with depression, anxiety and her chronic pain issues. He got rid of her Latuda yesterday in lieu of Seroquel, which he documented that he is using it off label at 50 mg t.i.d., not only to augment the effectiveness of her antidepressant, but also to help reduce some of her anxiety. I am going to increase this to 100 mg t.i.d. and monitor her. Let us see if we can get her to sleep, let us see if we can get some of these behaviors to stop, regardless of these EPS and these behaviors is real, but if she is faking this that is not normal. Her irritability and mood lability is not good for her. Long-term goal is try to keep her on a simple as much medication as possible, but I feel that she is cognizant enough to know what she is doing, but there is some underlying depression or attention seeking that is going on that is causing her to do things that are not normal. I will continue with the Cogentin. I am going to increase the Seroquel to 100 mg t.i.d., let us monitor for sedation. We will continue with Cymbalta. We will continue with the Vistaril for anxiety. We will try to redirect, try to get her to calm down, see if we can get her to self regulate some of her behaviors and go from there. BULMARO STAFFORD CNP CM:PNTRANS [id number] ANNE STAFFORD 10/21/16 0220 interface
--- NOTE | ~2016-10-17 | WRIGHTHP ---
[place], [place] PATIENT HISTORY AND PHYSICAL EXAM NAME: SANCHEZ POLANCO [facility] #: [id number] UNIT #: [id number] ROOM: 316 DOCTOR: EBONI CHANG MD BIRTHDATE: [birth year] DOS: 10/18/2016 CHIEF COMPLAINT: "My pain is so bad, I can't go on like this." HISTORY OF PRESENT ILLNESS: This is a 75-year-old white female who is a recent resident of [facility]. The patient had been admitted there following significant back surgery at [facility]. Once there the patient has had a significant mental status change with increased depression and increased mood lability with verbal and physical aggression. She has been acting out towards staff and other residents. She has been throwing things in her room. She pushed her walker into the staff; she has been refusing to stay in bed and refusing care. She has been noncompliant with multiple aspects of her care there and has been stating that she is so depressed. She does not want to go on. Her sleep and appetite have been adversely affected and she has been increasingly more despondent. She is admitted now to rule out any organic factors, to stabilize on medication, to engage in individual and estrada milieu activity with the ultimate plan to return back to [facility] when psychiatrically stable. PAST MEDICAL HISTORY: Remarkable for COPD, vertigo, chronic pain, diabetes, congestive heart failure, gout, hypertension, multiple falls, gait disturbance and polypharmacy. MENTAL STATUS: Upon admission, the patient is alert and oriented to person, place, and approximate to time. Mood is overwhelmingly depressed. Affect is somewhat flat and blunted. She was on the verge of tears and at one point did cry stating that she is in such pain she cannot go on. She also exhibited some mood lability. There is no psychotic symptoms that were overtly present. She denied auditory or visual hallucinations. There is no alexx or hypomania. Memory for the most part was intact. DIAGNOSIS: Major depression, recurrent, rule out bipolar type II. PLAN: I have maintained her on Cymbalta 60 mg at bedtime. I will increase this to 30 mg in the morning and 60 mg at bedtime with a target dose of 120 mg ____. I will go ahead and maintain her on the Latuda 40 mg at bedtime, which I added to augment the effectiveness of the Cymbalta. I will also start her on Zostrix high potency cream as another agent to attack her chronic pain that she rates as 10 on a scale of 1-10 with 10 being the worst. Will engage her in individual and estrada milieu activity with the ultimate plan to return back to [facility] when stable. [place], [place] PATIENT HISTORY AND PHYSICAL EXAM NAME: SANCHEZ POLANCO UNIT #: [id number] ROOM: [facility] DOCTOR: EBONI CHANG MD BIRTHDATE: [birth year] EBONI CHANG MD CM:HISPHYS:PATIENT HISTORY AND PHYSICAL EXAMINATION 1 [id number] EBONI CHANG MD 10/18/16 0941 interface
--- NOTE | ~2016-10-17 | PR ---
[place], [place] PROGRESS NOTE [id number] #: [id number] ROOM: 316 DOCTOR: EBONI CAMARENA MD BIRTHDATE: [birth year] DOS: 10/19/2016 INTERVAL NOTE CHIEF COMPLAINT: "Who are you?" SUMMARY OF THE VISIT: The patient was interviewed in her room and she was resting quietly in bed. I did automotive maintenance technician the hallway and watch her have her vital signs taken and she was very appropriate and calm, and was not moving. As I approached, she began exhibiting marked whole body tremors and was very perplexed why this was happening and could not tell me how long she was having such significant tremors. She looked me squarely me in the eyes and asked who I was appearing not to remember who I was and was very surprised when I introduced myself as Dr. Camarena. She continues to exhibit this kind of feigned behavior on and off throughout the day as nurses continue to document periods of extreme calmness followed by multiple somatic presentations once she realizes that she is being watched and engaged in conversation. MENTAL STATUS: She is alert and oriented with some gaps. It is unclear how much of this is realistic gaps versus feigned. She does continue to endorse feeling depressed and continues to be fixated on pain as well. There is no gross alexx or hypomania. It is unclear if this is a delusional issue rather than just being feigned. I will continue to tease this out. PLAN: I will go ahead and maximize Cymbalta to 60 mg twice daily as a means to combat depression, reduce anxiety and reduce her pain. Given the fact that there is ongoing daily anxiety, I will go ahead and discontinue Latuda and utilize Seroquel off label at a dose of 50 mg 3 times daily, not only to augment the effectiveness of the antidepressant, but also at this dose, schedule to reduce anxiety. We will continue to engage her in individual and estrada milieu activity. We will then explore possible discharge options once stable. EBONI CAMARENA MD CM:PNTRANS [phone] EBONI CAMARENA MD 10/19/162237 interface
--- NOTE | ~2016-10-17 | DS ---
[place], [place] DISCHARGE SUMMARY NAME: [id number] UNIT #: [id number] ROOM: 316 DOCTOR: ANNE STAFFORD BIRTHDATE: [birth year] DOS: 10/20/2016 HISTORY OF PRESENT ILLNESS: This 75-year-old female presenting to us from [facility] who had been admitted thereafter significant back surgery; she became verbally and physically aggressive, increased mood lability and depression. Throwing things around her room, noncompliant with multiple aspects of her care, poor sleep and appetite was admitted to rule out organic factors and stabilize on her medication. I saw her yesterday and her mental status was alert and oriented to person, place, approximate time, significant mood lability, very irritated, irritable, agitated, passive-aggressive, anxious overtones, but was able to have a complete conversation with her. She was able to explain to me why she thought it was appropriate for her to be irritable and agitated. She was having EPS when I was in the room, but when we were out the room the EPS would stop. After I saw her and later in the day I received a phone call from the nursing staff. The nurse stated that all of a sudden she was not able to carry on a conversation, just looked off, the nurse got vitals, at the time her temperature was 100.2, which could be elevated in this population and her pulse was 112. She had reached out to the hospitalist, they were requesting that she be sent down to the Emergency Room for further evaluation and I concurred with this. Patient was sent to the Emergency Room by time she got down there, her temperature has spiked to 102, she was tachycardic. The patient needed to be transported out to [facility]. It should be noted that at one point in time the halfway, she was running elevated white count, but they could not find the source of infection. The patient was admitted here for her: AXIS I: Major depression, recurrent, rule out bipolar II. PAST MEDICAL HISTORY: Include COPD, vertigo, chronic pain, diabetes, congestive heart failure, gout, hypertension, multiple falls, gait disturbances and polypharmacy. The patient is being discharged to the Emergency Room for further evaluation and then was transported to [facility]. [place], [place] DISCHARGE SUMMARY NAME: SANCHEZ POLANCO UNIT #: [id number] ROOM: 316 DOCTOR: ANNE STAFFORD BIRTHDATE: [birth year] BULMARO STAFFORD CNP CM:DEBORAH [id number] ANNE STAFFORD 10/21/16 1459 interface
[~2016-10-17 13:42] MED LIST changes: +AUGMENTIN 875-875 MG PO; +MUCUS RELIEF600 MG PO; +ROBAXIN500 M1 PO
[2016-10-17 13:57] VITALS: BP 105/44
[2016-10-17 14:31] LABS: BASO % 0.4 % (0.0-1.0); EOS # 0.1 10*3/uL (0.0-0.4); EOS % 1.8 % (1.0-4.0); HEMATOCRIT 31.3 % (37.0-47.0); HEMOGLOBIN 9.9 g/dl (12.0-16.0); IG # 0.1 10*3/uL (0.0-0.1); LYMPH # 1.1 10*3/uL (1.3-4.4); LYMPH % 13.6 % (27.0-41.0); MEAN CELL VOLUME 93.2 fl (81.0-99.0); MEAN CORPUSCULAR HGB 29.5 pg (27.0-31.0); MEAN CORPUSCULAR HGB CONC 31.6 g/dl (33.0-37.0); MEAN PLATELET VOLUME 10.8 fl (9.6-12.3); MONO # 0.9 10*3/uL (0.1-1.0); NEUT # 5.4 10*3/uL (2.3-7.9); NEUT % 70.5 % (47.0-73.0); PLATELET COUNT AUTOMATED 214 10*3/uL (130-400); RED BLOOD COUNT 3.36 10*6/uL (4.10-5.10); RED CELL DISTRI WIDTH 13.8 % (0-14.5); WHITE BLOOD COUNT 7.7 10*3/uL (4.8-10.8)
[2016-10-17] MEDS ORDERED: GLYCOLAX119 GM PO (14:38)
[2016-10-17] MEDS ORDERED: LYRICA75 M1 PO (14:38)
[2016-10-17 14:41] LABS: URINE AMPHETAMINES < 1000 (1000ng/ml); URINE BARBITURATES < 200 (200ng/ml); URINE COCAINE < 300 (300ng/ml)
[2016-10-17 14:43] LABS: BILIRUBIN NEGATIVE (NEGATIVE); BLOOD NEGATIVE (NEGATIVE); CLARITY CLEAR (CLEAR); COLOR YELLOW (YELLOW); GLUCOSE NEGATIVE (NEGATIVE); KETONE NEGATIVE (NEGATIVE); LEUKO ESTERASE NEGATIVE (NEGATIVE); NITRITE NEGATIVE (NEGATIVE); PH 5.5 (5.0-9.0); PROTEIN NEGATIVE (NEGATIVE); UROBILINOGEN 0.2 E.U./dl (0.2-1.0)
[2016-10-17 14:53] LABS: RBC 0-2 rbc/hpf (0-2); URINE REFLEX COMMENT NO (NO); WBC 0-2 wbc/hpf (0-5)
[2016-10-17 15:05] LABS: BUN 9 mg/dl (7-24); CARBON DIOXIDE 28 mmol/L (21-32); CHLORIDE 106 mmol/L (98-107); EST GLOM FILT AFRICAN AMERICAN > 60 ml/min; GLUCOSE 154 mg/dL (65-99); POTASSIUM 3.8 mmol/L (3.5-5.1); SODIUM 144 mmol/L (136-145)
[2016-10-17] MEDS ORDERED: OXYCODONE5 M1 PO (16:15)
[2016-10-17] MEDS ORDERED: SINGULAIR10 M1 PO (16:17)
[2016-10-17] MEDS ORDERED: HEPARIN SO5000 UNIT1 SC (16:21)
[2016-10-17 16:29] VITALS: BP 109/51
[2016-10-17] MEDS ORDERED: PRILOSEC20 M1 PO (17:34)
[2016-10-17] MEDS ORDERED: LASIX40 MG PO (18:18)
[2016-10-17 18:58] VITALS: BP 124/53
[2016-10-18 07:33] LABS: HEMOGLOBIN A1c 6.2 % (4.8-5.6)
[2016-10-18 08:00] VITALS: BP 120/82
[2016-10-18 09:21] LABS: VITAMIN D, 25-HYDROXY 32.6 ng/mL (30-100)
[2016-10-18 20:17] VITALS: BP 156/62
[2016-10-19 08:16] VITALS: BP 146/60
[2016-10-19 19:53] VITALS: BP 110/47
[2016-10-20 09:32] VITALS: BP 118/72
[2016-10-20] MEDS ORDERED: VISTARIL50 MG PO (18:57)
[2016-10-20] MEDS ORDERED: COGENTIN0.5 MG PO (18:57)
[2016-10-20] MEDS ORDERED: SEROQUEL100 MG PO (18:57)
[2016-10-20] MEDS ORDERED: ZOSTRIX56.6 GM TP (18:58)
== END 2016-10-20 18:45 | disposition other institution (70) | DRG 885 ==
LOC: ED 13:42 → 3N 17:19
PROVIDERS: Psychiatry & Neurology Psychiatry; Registered Nurse
DX: F33.9 Major depressive disorder, recurrent, unspecified (principal); E11.9 Type 2 diabetes mellitus without complications; I11.0 Hypertensive heart disease with heart failure; I50.9 Heart failure, unspecified; G89.29 Other chronic pain; M54.5 Low back pain; E78.2 Mixed hyperlipidemia; K21.9 Gastro-esophageal reflux disease without esophagitis; K59.09 Other constipation; R62.7 Adult failure to thrive; F41.9 Anxiety disorder, unspecified

== ENCOUNTER 2016-10-20 18:45 | Emergency (ER) | payer MEDICARE, MEDICAID ==
[~2016-10-20] VITALS: Wt 68.0 kg
[~2016-10-20 18:45] MED LIST changes: +GLYCOLAX119 GM PO; +HEPARIN SO5000 UNIT1 SC; +LASIX40 MG PO; +LYRICA75 M1 PO; +OXYCODONE5 M1 PO; +PRILOSEC20 M1 PO
[2016-10-20] MEDS ORDERED: COGENTIN0.5 MG PO (18:57)
[2016-10-20] MEDS ORDERED: SEROQUEL100 MG PO (18:57)
[2016-10-20] MEDS ORDERED: VISTARIL50 MG PO (18:57)
[2016-10-20] MEDS ORDERED: ZOSTRIX56.6 GM TP (18:58)
[2016-10-20 19:26] LABS: HEMATOCRIT 29.6 % (37.0-47.0); HEMOGLOBIN 9.3 g/dl (12.0-16.0); MEAN CELL VOLUME 92.2 fl (81.0-99.0); MEAN CORPUSCULAR HGB CONC 31.4 g/dl (33.0-37.0); MEAN PLATELET VOLUME 10.7 fl (9.6-12.3); PLATELET COUNT AUTOMATED 213 10*3/uL (130-400); RED BLOOD COUNT 3.21 10*6/uL (4.10-5.10); RED CELL DISTRI WIDTH 14.1 % (0-14.5); WHITE BLOOD COUNT 16.1 10*3/uL (4.8-10.8)
[2016-10-20 19:35] LABS: INTERNATIONAL NORM RATIO 1.1 (2.0-3.5); PROTHROMBIN TIME 11.6 SECONDS (9.0-12.4)
[2016-10-20 19:40] LABS: POTASSIUM 3.9 mmol/L (3.5-5.1)
[2016-10-20 19:43] LABS: MAGNESIUM 1.9 mg/dL (1.5-2.1)
[2016-10-20 19:44] LABS: TROPONIN I < 0.015 ng/ml (<0.045)
[2016-10-20 19:50] LABS: LYMPHOCYTE # 0.3 10*3/uL (1.3-4.4); MONOCYTE # 1.8 10*3/uL (0.1-1.0); NEUTROPHILS 87 % (47-73); TOTAL CELLS COUNTED 100 #CELLS
[2016-10-20 19:51] LABS: PLATELET SUFFICIENCY NORMAL (NORMAL); POLYCHROMASIA SLIGHT
[2016-10-20 20:05] LABS: BILIRUBIN 2+ (NEGATIVE); BLOOD TRACE-INTACT (NEGATIVE); CLARITY CLEAR (CLEAR); COLOR YELLOW (YELLOW); GLUCOSE NEGATIVE (NEGATIVE); KETONE TRACE (NEGATIVE); LEUKO ESTERASE NEGATIVE (NEGATIVE); NITRITE NEGATIVE (NEGATIVE); PROTEIN TRACE (NEGATIVE); SPECIFIC GRAVITY >= 1.030 (1.005-1.030)
[2016-10-20 20:15] LABS: URINE AMPHETAMINES < 1000 (1000ng/ml); URINE BARBITURATES < 200 (200ng/ml); URINE COCAINE < 300 (300ng/ml)
[2016-10-20 20:21] LABS: BACTERIA TRACE; HYALINE CAST 10-115; RBC 0-2 rbc/hpf (0-2); WBC 0-2 wbc/hpf (0-5)
[2016-10-20 20:22] LABS: URINE REFLEX COMMENT NO (NO)
[2016-10-21 00:46] VITALS: BP 115/50
== END 2016-10-21 01:47 | disposition short-term general hospital (02) ==
LOC: ED 18:45
PROVIDERS: Emergency Medicine Emergency Medical Services; Student in an Organized Health Care Education/Training Program
DX: A41.9 Sepsis, unspecified organism (principal); N17.9 Acute kidney failure, unspecified; G93.41 Metabolic encephalopathy; J45.909 Unspecified asthma, uncomplicated; F41.9 Anxiety disorder, unspecified; I10 Essential (primary) hypertension; M10.9 Gout, unspecified; I99.8 Other disorder of circulatory system; M54.5 Low back pain; G89.29 Other chronic pain; Z79.82 Long term (current) use of aspirin; Z79.899 Other long term (current) drug therapy

== ENCOUNTER 2016-11-21 17:09 | Inpatient (IN) | payer MEDICARE, MEDICAID ==
[~2016-11-21] VITALS: Ht 165.1 cm; Wt 93.1 kg
--- NOTE | ~2016-11-21 | CON ---
[place], [place] REPORT OF CONSULTATION NAME: SANCHEZ POLANCO [facility] #: [id number] UNIT #: [id number] ROOM: 507 DOCTOR: BEAR VELASQUEZ ED.D (PB) BIRTHDATE: [birth year] DOS: 11/22/2016 HISTORY OF PRESENT ILLNESS: The patient is a 76-year-old female referred for competency evaluation. At the present time, this patient is on the 5th floor at [facility]. She is a , her having approximately 14 years ago. She does have 2 daughters. She worked for many years at [employer] and also at [employer]. Her family physician is Dr. Gretta Gee and her medical history is pertinent for chronic back pain, laminectomy, osteoarthritis, benign hypertension, chronic pain syndrome, asthma, type 2 diabetes mellitus, hyperlipidemia and major depression. Her medications include aspirin, allopurinol, Klonopin, diltiazem, duloxetine, folic acid, lisinopril, lorazepam, meclizine, metformin, Singulair, omeprazole, oxycodone, potassium chloride, Lyrica, simvastatin and zolpidem. This patient denies any substance abuse issues. She was awake, alert and oriented in all 3 spheres and denied any suicidal ideation or plan. She does admit to being depressed because of her medical condition. She does not appear to be having any active delusional thoughts or hallucinations. She knew where she was, she knows the date and she knows the president and had no difficulty whatsoever with current events and discussions. I have known this patient for many years and she recognized me immediately and began talking to me with no difficulty whatsoever. In my opinion, this patient may be depressed at times, but she is certainly competent. DIAGNOSIS: Major depressive disorder, recurrent. RECOMMENDATIONS: In my opinion, this patient is competent to make informed healthcare decisions. Thank you very much for this referral. BEAR VELASQUEZ ED.D CM:CONSTR:REPORT OF CONSULTATION 1439 11/23/16 0312 interface GRETTA GEE MD
--- NOTE | ~2016-11-21 | WRIGHTHP ---
[place], [place] PATIENT HISTORY AND PHYSICAL EXAM NAME: SANCHEZ POLANCO [facility] #: [id number] UNIT #: [id number] ROOM: 507 DOCTOR: ARDEN GEE MD BIRTHDATE: [birth year] DOS: 11/22/2016 HISTORY OF PRESENT ILLNESS: The patient is a 76 years old. The patient was found at home by visiting nurses yesterday. [facility] prior to this admission and she called the office yesterday saying that she was not feeling good. Visiting nurses were sent out and she was found to be quite hypotensive and lethargic and was advised sent to the Emergency Room. This patient has an extensive past medical history. She was admitted to the hospital in October in Dr. Zamora's services with encephalopathy. She was in Behavioral Health Unit from there she was transferred to [facility] because of continued low grade fever and change in mental status. She was evaluated there and the diagnosis of polypharmacy was made. She was transferred to [facility] in mid October and she has remained in [facility] for almost a month. She was just discharged 2 days ago from [facility]. She does not have any complaints this morning. Denies any chest pains, palpitations or shortness of breath. Denies having any abdominal pain, nausea, any emesis. PAST MEDICAL HISTORY: Significant for, 1. Adult failure to thrive. 2. Chronic low back pain. 3. Laminectomy for a lumbar spinal stenosis L3-L4. 4. Osteoarthritis of the spine. 5. Benign hypertension. 6. Chronic pain syndrome. 7. Mild intermittent asthma. 8. Type 2 diabetes mellitus. 9. Mixed hyperlipidemia. 10. Major depression, moderate. MEDICATIONS: That she is currently on are aspirin 81 daily, allopurinol 100 daily, clonazepam 1 mg twice a day, diltiazem 240 daily, duloxetine 60 daily, folic acid 1 mg daily, lisinopril 10 daily, lorazepam 0.5 daily, meclizine 25 t.i.d., metformin 500 daily, Singulair 10 daily, omeprazole 20 daily, oxycodone 5 q. 4, potassium 10 daily, Lyrica 50 mg daily, simvastatin 10 daily, zolpidem 10 q.h.s. SOCIAL HISTORY: Nonsmoker, does not use any alcohol. PHYSICAL EXAMINATION: GENERAL: She is awake and alert and oriented, in no distress this morning. VITAL SIGNS: Graphic trend shows a pressure of 104/52, pulse of 82, respirations 16, temperature 98.2. LUNGS: Diminished breath sounds, clear. HEART: Regular. ABDOMEN: Obese, soft, nontender. EXTREMITIES: Without any edema, able to move all 4 extremities, backache examination, no evidence of any ongoing infectious process at the previous operative site. LABORATORY DATA: Shows a normal white blood cell count, but the ESR and CRP [place], [place] PATIENT HISTORY AND PHYSICAL EXAM NAME: SANCHEZ POLANCO UNIT #: [id number] ROOM: 507 DOCTOR: ARDEN GEE MD BIRTHDATE: [birth year] were elevated at 84 and 6.68, BUN 13, creatinine 0.98, sodium 143, potassium 3.8, chloride 108, bicarbonate 27. WBC count is 7.0, hemoglobin 10.7, hematocrit 35.2. ASSESSMENT AND PLAN: 1. The patient who presents with hypotension, possibly from polypharmacy again. The patient's daughter states that she has taken 16 pills of oxycodone in the last 2 days. The patient tells me she is only supposed to take it twice a day. Exact dose of oxycodone is not known. Right now, the patient is placed on 4 mg every 8 hours. PT/OT to be evaluated. IV fluids were given. Sepsis to be ruled out with blood cultures and urine cultures. 2. Chronic pain syndrome with chronic low back pain. Continue pain meds. Again, PT, OT, social service consult has been obtained. The patient refuses to go to a skilled, but I am not sure whether this will be a safe environment for her to go home. 3. Benign hypertension, controlled. 4. Type 2 diabetes mellitus, non-insulin dependent. Blood sugars to be checked. ARDEN GEE MD CM:HISPHYS:PATIENT HISTORY AND PHYSICAL EXAMINATION 3 5 ARDEN GEE MD 11/22/16745 interface
--- NOTE | ~2016-11-21 | EKG ---
[place], [place] ELECTROCARDIOGRAM REPORT NAME: SANCHEZ POLANCO UNIT #: [id number] ROOM: 507 DOCTOR: TAYLOR ROSS MD BIRTHDATE: [birth year] DOS: 11/21/2016 TIME: 1849 hours. FINDINGS: 1. Normal sinus rhythm at rate of 86 with first-degree AV block. 2. Low voltage in precordial leads. 3. Nonspecific T-wave abnormality. 4. Abnormal electrocardiogram. TAYLOR ROSS MD CM:EKGRPT:ELECTROCARDIOGRAM REPORT [id number] TAYLOR ROSS MD
--- NOTE | ~2016-11-21 | PR ---
[place], [place] PROGRESS NOTE NAME: SANCHEZ POLANCO [facility] #: [id number] UNIT #: [id number] ROOM: 507 DOCTOR: NITIN SIMMONS MD BIRTHDATE: [birth year] DOS: 11/23/2016 SUBJECTIVE: The patient is feeling somewhat better today. She is presently admitted under care of Dr. Gretta Weldon for low blood pressure, possibly secondary to medications, and also the patient was over taking her oxycodone, which is prescribed to her for pain. The patient apparently took 16 pills of oxycodone in 2 days prior to coming to the hospital. OBJECTIVE: VITAL SIGNS: Blood pressure 116/55, heart rate 80 beats per minute, breathing 16 times per minute, temperature 98.2 degrees Fahrenheit. GENERAL: Generalized weakness. HEENT AND NECK: Exam within normal limits. CARDIOVASCULAR SYSTEM: Heart rate is regular in rate and rhythm. S1 and S2 normally audible. LUNGS: Clear to auscultation. ABDOMEN: Soft, nontender. No obvious organomegaly. Bowel sounds are present. EXTREMITIES: Without significant cyanosis or edema. IMPRESSION: 1. Hypotension, probably secondary to excessive intake of oxycodone. It has improved with treatment. Blood pressures are improving. 2. Chronic pain syndrome with chronic lower back pains with continued treatment. The patient is refusing to go to penitentiary for rehabilitation, which is actually has been recommended to her. 3. Benign essential hypertension with improving blood pressures now. 4. Type 2 diabetes mellitus. Blood sugars are being monitored and controlled. 5. Blood cultures have been negative, which were checked because the patient was hypotensive. CT of the lumbosacral spine without any acute abnormality. NITIN SIMMONS MD CM:PNTRANS [id number] NITIN SIMMONS MD 11/24/16 0915 interface
--- NOTE | ~2016-11-21 | PR ---
[place], [place] PROGRESS NOTE NAME: SANCHEZ POLANCO [facility] #: [id number] UNIT #: [id number] ROOM: 507 DOCTOR: ARDEN GEE MD BIRTHDATE: [birth year] DOS: 11/26/2016 SUBJECTIVE: The patient is doing fine without any complaint. She is walking with physical therapy. She did not have a way of going home the last 2 days, but she does have family available. She does not have any complaints of chest pains, palpitations or shortness of breath. OBJECTIVE: GENERAL: She is awake and alert and oriented. VITAL SIGNS: Graphic trend shows a pressure 127/61, pulse of 81, respirations 20, temperature 97.8. LUNGS: Clear. HEART: Regular. ABDOMEN: Obese, nontender. EXTREMITIES: Without any edema. No signs of DVT. LABORATORY DATA: Urine culture shows multiple species contamination. Blood culture shows no bacterial growth. ASSESSMENT AND PLAN: 1. The patient who has adult failure to thrive here for physical. The patient arrived here and was advised [facility] facility placement, but has refused steadfastly, so there is no choice other than just sending her home because she is competent to make her decisions. We will get visiting nurses and physical therapy, occupational therapy at home. 2. Hypotension, possibly sepsis or polypharmacy from oxycodone intake. The dosage of the oxycodone has been cut down. Sepsis has been ruled out with negative blood cultures. Urine culture has shown multiple contaminated specimen and no other urine culture has been sent since then, so I will go ahead and place her on a low-dose antibiotics for a few days. 3. Recent laminectomy. The patient is instructed to make an appointment with her surgeon in [place]. ARDEN GEE MD CM:PNTRANS [phone] ARDEN GEE MD 11/26/16 1230 interface
--- NOTE | ~2016-11-21 | PR ---
[place], [place] PROGRESS NOTE NAME: SANCHEZ POLANCO [facility] #: [id number] UNIT #: [id number] ROOM: 507 DOCTOR: TROY WALTERSNITIN J BIRTHDATE: [birth year] DOS: 11/25/2016 SUBJECTIVE: The patient feels comfortable, but otherwise she is feeling chronically weak. The patient says she has no way to go home because none of her relatives are answering her calls including her daughter. OBJECTIVE: VITAL SIGNS: Blood pressure 139/64, heart rate 78 beats per minute, breathing 20 times per minute, afebrile. GENERAL APPEARANCE: The patient is alert and oriented x 3, in no visible distress. Moderate obesity and generalized weakness. HEENT AND NECK: Exam within normal limits. CARDIOVASCULAR SYSTEM: Heart rate is regular in rate and rhythm. S1 and S2 normally audible. LUNGS: Clear to auscultation. ABDOMEN: Soft, nontender. No obvious organomegaly. Bowel sounds are present. EXTREMITIES: Without significant cyanosis or edema. IMPRESSION: 1. The patient with hypotension, apparently from taking too many oxycodones, has resolved. 2. Chronic pain syndrome with chronic lower back pains, reasonably controlled at this time. 3. Benign essential hypertension with controlled blood pressures. 4. Type 2 diabetes mellitus with blood sugars ranging between 130-150, well controlled during this admission. 5. CT of the lumbosacral spine without any acute abnormality. 6. Blood cultures negative. Overall, the patient is doing well except for generalized weakness and chronic problem with adult failure to thrive. The patient can be safely discharged to a rehabilitation facility or she requires assisted living, but she is completely refusing. The patient is insisting on going home, but says she has no transport to go home. I volunteered that the hospital may be able to arrange transport for her to go home, but the patient is not asking for this. The patient wants to stay in the hospital until tomorrow when she sees her PCP, Dr. Gretta Weldon. Yesterday, the patient had said that she will have transport today, so she will be able to be discharged from the hospital, but she has changed her statement today. Generalized weakness and failure to thrive. The patient to work with physical therapy. [place], [place] PROGRESS NOTE NAME: SANCHEZ POLANCO UNIT #: [id number] ROOM: 507 DOCTOR: NITIN SIMMONS MD BIRTHDATE: [birth year] NITIN SIMMONS MD CM:PNTRANS [phone] NITIN SIMMONS MD 11/26/16 0325 interface
--- NOTE | ~2016-11-21 | DS ---
[place], [place] DISCHARGE SUMMARY NAME: SANCHEZ POLANCO UNIT #: [id number] ROOM: 507 DOCTOR: ARDEN GEE MD BIRTHDATE: [birth year] DOS: 11/26/2016 DIAGNOSES: 1. Polypharmacy. 2. Hypotension, sepsis ruled out. 3. Possible urinary tract infection with multiple contaminated specimen, no repeat culture was sent. 4. Hypotension, resolved. 5. Type 2 diabetes mellitus, [id number]. 6. Recent laminectomy with adult failure to thrive and falls. 7. Mixed hyperlipidemia. 8. Moderate to major depression history. 9. Osteoarthritis of the spine with chronic low back pain. HOSPITAL COURSE: The patient is a 76-year-old, was just released from the [facility]. As per the family, she took multiple pain medications, was found hypotensive and lethargic on the floor and ambulance was called by visiting nurses and sent to the Emergency Room. The patient denies taking pain medications. The family stated that she was taking 14 to 16 pills in 2 days of oxycodone. After admission, the patient was found to be hypotensive, was given vigorous IV hydration. Polypharmacy was noted to be one of the problems. Pressures have improved and the patient was restarted on her medications. Oxycodone dosage was cut back. PT/OT was consulted and they have been ambulating her. The patient was instructed to go to a rehab because of continued debilitation, but she has steadfastly refused it. She is competent to make her own decisions. Dr. Morales was consulted because the family felt that the patient is incompetent. He has deemed her competent. A CT of the lumbar spine done shows no abnormalities. ESR and CRP were elevated. Blood cultures have come back negative. Urine culture shows contaminated specimen. The patient has been advised to repeat urine culture as an outpatient. The patient will be placed on antibiotics. Ceftin 250 twice daily was ordered. This morning, the patient is stable and is not having any new complaints. The plan is to discharge her to home. [place], [place] DISCHARGE SUMMARY NAME: SANCHEZ POLANCO UNIT #: [id number] ROOM: 507 DOCTOR: ARDEN GEE MD BIRTHDATE: [birth year] ARDEN GEE MD CM:DEBORAH [phone] ARDEN GEE MD 11/26/16 0854 interface
[~2016-11-21 17:09] MED LIST changes: +COGENTIN0.5 MG PO; +SEROQUEL100 MG PO; +VISTARIL50 MG PO; +ZOSTRIX56.6 GM TP
[2016-11-21 17:25] VITALS: BP 109/54
[2016-11-21 18:01] VITALS: BP 109/54; BP 95/47
[2016-11-21 18:54] LABS: BASO # 0.1 10*3/uL (0.0-0.1); BASO % 0.7 % (0.0-1.0); EOS # 0.3 10*3/uL (0.0-0.4); EOS % 4.7 % (1.0-4.0); HEMATOCRIT 35.2 % (37.0-47.0); HEMOGLOBIN 10.7 g/dl (12.0-16.0); IG # 0.1 10*3/uL (0.0-0.1); LYMPH # 1.5 10*3/uL (1.3-4.4); LYMPH % 21.9 % (27.0-41.0); MEAN CELL VOLUME 85.4 fl (81.0-99.0); MEAN CORPUSCULAR HGB CONC 30.4 g/dl (33.0-37.0); MEAN PLATELET VOLUME 11.3 fl (9.6-12.3); MONO # 0.8 10*3/uL (0.1-1.0); MONO % 11.6 % (3.0-9.0); NEUT # 4.3 10*3/uL (2.3-7.9); NEUT % 60.4 % (47.0-73.0); PLATELET COUNT AUTOMATED 224 10*3/uL (130-400); RED BLOOD COUNT 4.12 10*6/uL (4.10-5.10); RED CELL DISTRI WIDTH 15.7 % (0-14.5)
[2016-11-21 19:07] VITALS: BP 100/58
[2016-11-21 19:13] LABS: BUN 13 mg/dl (7-24); CARBON DIOXIDE 27 mmol/L (21-32); CHLORIDE 108 mmol/L (98-107); EST GLOM FILT AFRICAN AMERICAN > 60 ml/min; GLUCOSE 119 mg/dL (65-99); POTASSIUM 3.8 mmol/L (3.5-5.1); SODIUM 143 mmol/L (136-145)
[2016-11-21 19:15] LABS: TROPONIN I < 0.015 ng/ml (<0.045)
[2016-11-21] MEDS ORDERED: ZOLPIDEM TART10 MG PO (19:24)
[2016-11-21] MEDS ORDERED: NATURE'S BLEND F1 MG PO (19:26)
[2016-11-21] MEDS ORDERED: CLONAZEPAM1 MG PO (19:28)
[2016-11-21] MEDS ORDERED: OMEPRAZOLE40 MG PO (19:29)
[2016-11-21] MEDS ORDERED: ATIVAN0.5 MG PO (19:36)
[2016-11-21] MEDS ORDERED: POTASSIUM CHLO10 ME4 PO (19:39)
[2016-11-21] MEDS ORDERED: Meclizine25 MG PO (19:44)
[2016-11-21] MEDS ORDERED: CYMBALTA60 MG PO (19:46)
[2016-11-21 19:59] VITALS: BP 100/58
[2016-11-21 20:45] VITALS: BP 102/48
[2016-11-22] VITALS: BP 110/40
[2016-11-22 03:52] LABS: BILIRUBIN NEGATIVE (NEGATIVE); BLOOD NEGATIVE (NEGATIVE); CLARITY SL CLOUDY (CLEAR); COLOR YELLOW (YELLOW); GLUCOSE NEGATIVE (NEGATIVE); KETONE NEGATIVE (NEGATIVE); LEUKO ESTERASE TRACE (NEGATIVE); NITRITE NEGATIVE (NEGATIVE); PROTEIN NEGATIVE (NEGATIVE); SPECIFIC GRAVITY >= 1.030 (1.005-1.030); UROBILINOGEN 0.2 E.U./dl (0.2-1.0)
[2016-11-22 03:58] LABS: EPITHELIAL CELLS 45-50
[2016-11-22 03:59] LABS: BACTERIA 1+; URINE REFLEX COMMENT YES (NO)
[2016-11-22 04:00] VITALS: BP 104/52
[2016-11-22 08:00] VITALS: BP 111/51
[2016-11-22 12:00] VITALS: BP 105/51
[2016-11-22 16:00] VITALS: BP 102/43
[2016-11-22 20:00] VITALS: BP 116/51
[2016-11-23] VITALS: BP 90/50
[2016-11-23 08:00] VITALS: BP 124/57
[2016-11-23 12:00] VITALS: BP 116/55
[2016-11-23 16:00] VITALS: BP 138/63
[2016-11-23 20:00] VITALS: BP 125/63
[2016-11-24] VITALS: BP 136/61
[2016-11-24 08:00] VITALS: BP 126/63
[2016-11-24 12:00] VITALS: BP 132/66
[2016-11-24 16:00] VITALS: BP 130/66
[2016-11-24 20:00] VITALS: BP 122/60
[2016-11-25] VITALS: BP 133/67
[2016-11-25 08:00] VITALS: BP 145/61
[2016-11-25 12:00] VITALS: BP 139/64
[2016-11-25 16:00] VITALS: BP 137/70
[2016-11-25 20:00] VITALS: BP 127/64
[2016-11-25] MEDS ORDERED: STOOL SOFTENER100 M3 PO (21:39)
[2016-11-26] VITALS: BP 127/61
[2016-11-26] MEDS ORDERED: OXYCODONE HCL5 MG PO (07:47)
[2016-11-26] MEDS ORDERED: DOXYCYCLINE100 M3 PO (07:54)
[2016-11-26 08:00] VITALS: BP 132/68
== END 2016-11-26 12:02 | disposition home health service (06) | DRG 312 ==
LOC: ED 17:09 → EDHOLD 18:36 → 5E 18:36
PROVIDERS: Emergency Medicine
DX: I95.2 Hypotension due to drugs (principal); N39.0 Urinary tract infection, site not specified; E11.9 Type 2 diabetes mellitus without complications; F33.9 Major depressive disorder, recurrent, unspecified; E78.2 Mixed hyperlipidemia; M54.5 Low back pain; R62.7 Adult failure to thrive; M47.9 Spondylosis, unspecified; I10 Essential (primary) hypertension; T40.2X5A Adverse effect of other opioids, initial encounter; G89.4 Chronic pain syndrome; Z79.82 Long term (current) use of aspirin; Z79.899 Other long term (current) drug therapy; Y92.89 Other specified places as the place of occurrence of the external cause

== ENCOUNTER 2016-11-29 13:02 | Inpatient (IN) | payer MEDICARE, MEDICAID ==
[~2016-11-29] VITALS: Ht 157.5 cm; Wt 88.0 kg
--- NOTE | ~2016-11-29 | PR ---
[place], [place] PROGRESS NOTE NAME: SANCHEZ POLANCO [facility] #: [id number] UNIT #: [id number] ROOM: 507 DOCTOR: ARDEN GEE MD BIRTHDATE: [birth year] DOS: 12/03/2016 SUBJECTIVE: The patient is about the same, does not have any new complaints. Denies any chest pains, palpitations, or shortness of breath. PHYSICAL EXAMINATION: VITAL SIGNS: Graphic trend shows a pressure of 140/57, pulse of 74, respirations 18, temperature 97.9. LUNGS: Clear. HEART: Regular. ABDOMEN: Obese, soft. EXTREMITIES: Without any edema. LABORATORY DATA: Urine culture showed Klebsiella pneumoniae. Blood culture shows no bacterial growth. ASSESSMENT AND PLAN: 1. Adult failure to thrive with polypharmacy. The patient is awaiting placement again. 2. Urinary tract infection with Klebsiella pneumoniae, on IV antibiotics already. We can switch to p.o. 3. Acute gouty arthritis. Already on multiple preparations. Was already on Indocin and allopurinol. Dr. Perdue added colchicine yesterday. Did try to reach her daughter who was unavailable, message was left. ARDEN GEE MD CM:PNTRANS 6 [phone] ARDEN GEE MD 12/03/16918 interface
--- NOTE | ~2016-11-29 | DS ---
[place], [place] DISCHARGE SUMMARY NAME: SANCHEZ POLANCO [facility] #: [id number] UNIT #: [id number] ROOM: 507 DOCTOR: ARDEN GEE MD BIRTHDATE: [birth year] DOS: 12/04/2016 DIAGNOSES: 1. Polypharmacy. 2. Laminectomy with chronic pain syndrome. 3. Adult failure to thrive with multiple falls. 4. Type 2 diabetes mellitus, non-insulin dependent. 5. Benign hypertension. 6. Mixed hyperlipidemia. 7. Major depression, moderate, recurrent. 8. Mild intermittent asthma. 9. Urinary tract infection with Klebsiella pneumoniae. 10. Chronic gouty arthropathy. HOSPITAL COURSE: This patient is very well known to us, was brought into the Emergency Room after falling at home again. This time, she had taken 3 Ambiens within a few minutes as per the visiting nurses. The patient was unable to walk. She came in, was admitted. PT/OT consultation was obtained. The patient was placed on antibiotics for possible UTI. Urine culture is showing Klebsiella pneumoniae which is sensitive to Floxin. The antibiotics were changed to Floxin. The patient is overall stable. Condition was discussed with the patient's family in detail. I did encourage the patient to get placed because she will not be a good candidate for going home alone anymore because she is unable to take care of her medicines properly. The patient has been quite upset about this decision. This morning, we are waiting for precertification with an insurance company about placement. She will most likely go to a facility in [place] where her daughter works. DISCHARGE MEDICATIONS: Will be zolpidem 5 at bedtime, colchicine 0.6 b.i.d. for 5 days, Cipro 500 b.i.d. for 5 days, metformin 500 daily, simvastatin 10 daily, lisinopril 10 daily, diltiazem 240 daily, aspirin 81 daily, allopurinol 100 daily, Singulair 10 daily, folic acid 1 mg daily, omeprazole 20 daily, potassium 10 daily, meclizine 25 t.i.d. p.r.n., Cymbalta 60 daily, Colace 200 daily, [place] 5 t.i.d. p.r.n., Klonopin 0.5 b.i.d. [place], [place] DISCHARGE SUMMARY NAME: SANCHEZ POLANCO UNIT #: [id number] ROOM: 507 DOCTOR: ARDEN GEE MD BIRTHDATE: [birth year] ARDEN GEE MD CM:DEBORAH [phone] ARDEN GEE MD 12/04/16 0914 interface
--- NOTE | ~2016-11-29 | WRIGHTHP ---
[place], [place] PATIENT HISTORY AND PHYSICAL EXAM NAME: SANCHEZ POLANCO [facility] #: [id number] UNIT #: [id number] ROOM: 507 DOCTOR: ARDEN GEE MD BIRTHDATE: [birth year] DOS: 11/29/2016 HISTORY OF PRESENT ILLNESS: The patient is 76 years old. The patient is very well known to us. She was discharged from the hospital recently after falls at home. After she went home, visiting nurses have been seeing her and they have noticed a pattern of polypharmacy where she takes multiple pain medications, anxiety medicines and sleeping pills altogether. Yesterday, they went in and she was noted to have taken 3 Ambien. She denies ever doing that. She denies having any complaints other than she is unable to walk and has frequent falls. PAST MEDICAL HISTORY: Significant for: 1. Recent laminectomy. 2. Adult failure to thrive with multiple falls. 3. Polypharmacy. 4. Type 2 diabetes mellitus, non-insulin dependent. 5. Benign hypertension. 6. Mixed hyperlipidemia. 7. Major depression, moderate, recurrent. MEDICATIONS: She was on Ceftin 250 twice daily and the rest of the meds were Klonopin 1 mg b.i.d., allopurinol 100 daily, aspirin 81 daily, diltiazem 240 daily, duloxetine 60 daily, folic acid 1 mg daily, lisinopril 10 daily, lorazepam 0.5 daily, meclizine 25 t.i.d., metformin 500 daily, Singulair 10 daily, omeprazole 20 daily, oxycodone 5 mg q. 8 hours, potassium 10 mEq, Lyrica 50 mg, simvastatin 10 mg, zolpidem 10 mg at bedtime. SOCIAL HISTORY: Nonsmoker, does not use any alcohol. Lives at home alone. PHYSICAL EXAMINATION: VITAL SIGNS: Graphic trend shows a blood pressure of 138/68, pulse of 90, respirations 20, temperature 97.8. LUNGS: Diminished breath sounds. No wheezes, rales or rhonchi heard. HEART: Regular. ABDOMEN: Obese. EXTREMITIES: No edema on the left; right leg around the first metatarsal joint there is some redness and swelling suggestive of chronic gouty arthropathy. ASSESSMENT AND PLAN: 1. Adult failure to thrive with repeated falls with polypharmacy. I explained to the patient that she will have to go to a rehab or [facility] and long-term placement because she is not safe at home any longer. She did argue with me and was upset, but I do not have any choice, but to discharge her to a Skilled Facility right now. 2. Possible urinary tract infection. She was on Ceftin, I have continued IV antibiotics here and urine culture has been sent. 3. Chronic low back pain with history of recent laminectomy. Surgical changes were noticed and no other abnormalities were seen on CT of the lumbar spine or the cervical spine. 4. Gouty arthropathy, allopurinol was already started. I will do an x-ray of [place], [place] PATIENT HISTORY AND PHYSICAL EXAM NAME: SANCHEZ POLANCO [facility] #: [id number] UNIT #: [id number] ROOM: [facility] DOCTOR: ARDEN GEE MD BIRTHDATE: [birth year] the right Indocin will be given for 5 days. 5. Benign hypertension, controlled. 6. Type 2 diabetes mellitus, on metformin. ADA diet. Blood sugars are controlled. ARDEN GEE MD CM:HISPHYS:PATIENT HISTORY AND PHYSICAL EXAMINATION 6 0 ARDEN GEE MD 11/30/1651 interface
--- NOTE | ~2016-11-29 | PR ---
[place], [place] PROGRESS NOTE NAME: SANCHEZ POLANCO [facility] #: [id number] UNIT #: [id number] ROOM: 507 DOCTOR: ARDEN GEE MD BIRTHDATE: [birth year] DOS: 12/04/2016 SUBJECTIVE: The patient is doing fine without any complaints. Discussed condition with the patient's daughter yesterday. OBJECTIVE: VITAL SIGNS: Pressure is /84, pulse of 78, respirations 18, temperature 98.1. LUNGS: Clear. HEART: Regular. ABDOMEN: Obese. EXTREMITIES: Without any edema. LABORATORY DATA: Shows a glucose of 124. Electrolytes were normal. Sodium and potassium were normal. White blood cell count is 4.5, hemoglobin 10.2, platelets 288. ASSESSMENT AND PLAN: 1. The patient who presents with metabolic encephalopathy. The patient is stable and improved from polypharmacy. 2. Adult failure thrive, to go to a rehab center today. Arrangements are being made. We will arrange for discharge. Discussed with the patient's daughter in detail. ARDEN GEE MD CM:PNTRANS [phone] ARDEN GEE MD 12/05/16 0117 interface
--- NOTE | ~2016-11-29 | PR ---
[place], [place] PROGRESS NOTE NAME: SANCHEZ POLANCO [facility] #: [id number] UNIT #: [id number] ROOM: 507 DOCTOR: NITIN SIMMONS MD BIRTHDATE: [birth year] DOS: 12/01/2016 SUBJECTIVE: The patient overall feeling better, but she has redness and swelling in the right toe. OBJECTIVE: GENERAL APPEARANCE: The patient is alert and oriented x 3, in no visible distress. Generalized weakness. VITAL SIGNS: Blood pressure 128/56, heart rate 80 beats per minute, breathing 18 times per minute, temperature 98.3 degrees Fahrenheit. HEENT AND NECK: Exam within normal limits. CARDIOVASCULAR SYSTEM: Heart rate is regular in rate and rhythm. S1 and S2 normally audible. LUNGS: Decreased breath sounds. ABDOMEN: Soft, nontender. No obvious organomegaly. Bowel sounds are present. EXTREMITIES: Without significant cyanosis or edema. Redness at the base of the right toe. IMPRESSION: 1. Gouty arthritis involving the first metatarsophalangeal joint of the right foot. The patient already on indomethacin. I will add colchicine to the treatment for a few days. 2. Adult failure to thrive. The patient waiting for transfer to long-term facility. 3. Chronic lower back pain with spinal stenosis and recent laminectomy. 4. Benign essential hypertension with controlled blood pressures. 5. Type 2 diabetes mellitus. Blood sugars are being monitored and controlled. NITIN SIMMONS MD CM:PNTRANS 1813 0058 NITIN SIMMONS MD 12/02/16 0058 interface
--- NOTE | ~2016-11-29 | PR ---
[place], [place] PROGRESS NOTE [id number] UNIT #: [id number] ROOM: 507 DOCTOR: NITIN SIMMONS MD BIRTHDATE: [birth year] DOS: 12/02/2016 SUBJECTIVE: The patient continues to feel better and is waiting for placement to the nursing facility and she says she prefers to go to [facility]. OBJECTIVE: GENERAL APPEARANCE: The patient is alert and oriented x 3, in no visible distress. Obesity and generalized weakness. VITAL SIGNS: Blood pressure 128/54, heart rate of 80 beats per minute, breathing 20 times per minute, afebrile, pulse ox 95%. HEENT AND NECK: Exam within normal limits. CARDIOVASCULAR SYSTEM: Heart rate is regular in rate and rhythm. S1 and S2 normally audible. LUNGS: Clear to auscultation. ABDOMEN: Soft, nontender. No obvious organomegaly. Bowel sounds are present. EXTREMITIES: Without significant cyanosis or edema. IMPRESSION: 1. Adult failure to thrive. The patient wanting to go to [facility] facility, which has been requested. 2. Acute gouty arthritis involving the first metatarsophalangeal joint of the right foot for which she was started on colchicine yesterday and is showing slight improvement. 3. Chronic lower back pain and spinal stenosis with recent laminectomy. 4. Benign essential hypertension with controlled blood pressures. 5. Type 2 diabetes mellitus. The patient's blood sugars are reasonably controlled. NITIN SIMMONS MD CM:PNTRANS [id number] NITIN SIMMONS MD 12/03/16 0426 interface
[~2016-11-29 13:02] MED LIST changes: +ATIVAN0.5 MG PO; +DOXYCYCLINE100 M3 PO; +Meclizine25 MG PO; +NATURE'S BLEND F1 MG PO; +OXYCODONE HCL5 MG PO; +POTASSIUM CHLO10 ME4 PO; +STOOL SOFTENER100 M3 PO; +ZOLPIDEM TART10 MG PO
[2016-11-29 13:47] VITALS: BP 112/64
[2016-11-29 14:14] LABS: BASO # 0.1 10*3/uL (0.0-0.1); BASO % 0.6 % (0.0-1.0); EOS # 0.2 10*3/uL (0.0-0.4); EOS % 1.6 % (1.0-4.0); LYMPH # 1.1 10*3/uL (1.3-4.4); LYMPH % 11.7 % (27.0-41.0); MEAN CELL VOLUME 84.1 fl (81.0-99.0); MEAN CORPUSCULAR HGB 25.7 pg (27.0-31.0); MEAN CORPUSCULAR HGB CONC 30.6 g/dl (33.0-37.0); MEAN PLATELET VOLUME 10.8 fl (9.6-12.3); MONO # 0.9 10*3/uL (0.1-1.0); MONO % 9.5 % (3.0-9.0); NEUT # 7.2 10*3/uL (2.3-7.9); NEUT % 76.3 % (47.0-73.0); PLATELET COUNT AUTOMATED 251 10*3/uL (130-400); RED BLOOD COUNT 4.28 10*6/uL (4.10-5.10); RED CELL DISTRI WIDTH 15.9 % (0-14.5); WHITE BLOOD COUNT 9.5 10*3/uL (4.8-10.8)
[2016-11-29 14:24] LABS: PROTHROMBIN TIME 11.1 SECONDS (9.0-12.4)
[2016-11-29 14:33] LABS: ALBUMIN 2.7 gm/dl (3.1-4.5); ALKALINE PHOSPHATASE 141 U/L (45-117); BILIRUBIN, TOTAL 0.5 mg/dl (0.2-1.0); BUN 8 mg/dl (7-24); C-REACTIVE PROTEIN 7.15 MG/DL (0-0.3); CARBON DIOXIDE 27 mmol/L (21-32); CHLORIDE 107 mmol/L (98-107); CPK 44 U/L (26-192); EST GLOM FILT AFRICAN AMERICAN > 60 ml/min; GLUCOSE 137 mg/dL (65-99); MAGNESIUM 1.4 mg/dL (1.5-2.1); POTASSIUM 3.3 mmol/L (3.5-5.1); SGOT/AST 12 IU/L (3-35); SGPT/ALT 13 U/L (12-78); SODIUM 142 mmol/L (136-145)
[2016-11-29 14:39] LABS: TROPONIN I < 0.015 ng/ml (<0.045)
[2016-11-29 14:58] LABS: BILIRUBIN NEGATIVE (NEGATIVE); BLOOD 1+ (NEGATIVE); CLARITY CLOUDY (CLEAR); COLOR YELLOW (YELLOW); GLUCOSE NEGATIVE (NEGATIVE); KETONE TRACE (NEGATIVE); LEUKO ESTERASE 1+ (NEGATIVE); NITRITE POSITIVE (NEGATIVE); PH 5.5 (5.0-9.0); PROTEIN 1+ (NEGATIVE); SPECIFIC GRAVITY >= 1.030 (1.005-1.030); UROBILINOGEN 0.2 E.U./dl (0.2-1.0)
[2016-11-29 15:09] LABS: BACTERIA 3+; WBC 21-30 wbc/hpf (0-5)
[2016-11-29 15:10] LABS: MUCOUS TRACE; URINE REFLEX COMMENT YES (NO)
[2016-11-29 15:27] VITALS: BP 116/68
[2016-11-29 17:25] VITALS: BP 132/60
[2016-11-29] MEDS ORDERED: NORCO 7.5-3251 EACH PO (18:01)
[2016-11-29 20:00] VITALS: BP 135/52
[2016-11-30] VITALS: BP 153/62
[2016-11-30 08:00] VITALS: BP 138/68
[2016-11-30 12:00] VITALS: BP 131/67
[2016-11-30 16:00] VITALS: BP 132/53
[2016-11-30 20:00] VITALS: BP 131/50
[2016-12-01] VITALS: BP 126/53
[2016-12-01 06:08] LABS: BASO # 0.1 10*3/uL (0.0-0.1); BASO % 0.5 % (0.0-1.0); EOS # 0.2 10*3/uL (0.0-0.4); EOS % 2.6 % (1.0-4.0); HEMATOCRIT 35.8 % (37.0-47.0); HEMOGLOBIN 10.7 g/dl (12.0-16.0); LYMPH # 1.1 10*3/uL (1.3-4.4); LYMPH % 12.1 % (27.0-41.0); MEAN CELL VOLUME 84.6 fl (81.0-99.0); MEAN CORPUSCULAR HGB 25.3 pg (27.0-31.0); MEAN CORPUSCULAR HGB CONC 29.9 g/dl (33.0-37.0); MEAN PLATELET VOLUME 11.5 fl (9.6-12.3); MONO # 1.1 10*3/uL (0.1-1.0); MONO % 11.8 % (3.0-9.0); NEUT # 6.7 10*3/uL (2.3-7.9); NEUT % 72.6 % (47.0-73.0); PLATELET COUNT AUTOMATED 259 10*3/uL (130-400); RED BLOOD COUNT 4.23 10*6/uL (4.10-5.10); RED CELL DISTRI WIDTH 16.1 % (0-14.5); WHITE BLOOD COUNT 9.2 10*3/uL (4.8-10.8)
[2016-12-01 06:38] LABS: BUN 11 mg/dl (7-24); CARBON DIOXIDE 27 mmol/L (21-32); CHLORIDE 106 mmol/L (98-107); EST GLOM FILT AFRICAN AMERICAN > 60 ml/min; GLUCOSE 135 mg/dL (65-99); POTASSIUM 3.9 mmol/L (3.5-5.1); SODIUM 141 mmol/L (136-145)
[2016-12-01 08:00] VITALS: BP 126/58
[2016-12-01 16:00] VITALS: BP 128/56
[2016-12-01 20:00] VITALS: BP 136/65
[2016-12-02] VITALS: BP 134/49
[2016-12-02 08:00] VITALS: BP 128/54
[2016-12-02 16:47] VITALS: BP 127/64
[2016-12-02 20:00] VITALS: BP 128/68
[2016-12-03] VITALS: BP 140/57
[2016-12-03 08:00] VITALS: BP 152/78
[2016-12-03 12:00] VITALS: BP 134/67
[2016-12-03 16:00] VITALS: BP 150/65
[2016-12-03 20:00] VITALS: BP 144/78
[2016-12-04] VITALS: BP 140/54
[2016-12-04 06:16] LABS: BASO # 0.1 10*3/uL (0.0-0.1); BASO % 1.1 % (0.0-1.0); EOS # 0.3 10*3/uL (0.0-0.4); EOS % 6.5 % (1.0-4.0); HEMATOCRIT 33.8 % (37.0-47.0); HEMOGLOBIN 10.2 g/dl (12.0-16.0); LYMPH # 1.4 10*3/uL (1.3-4.4); LYMPH % 31.6 % (27.0-41.0); MEAN CELL VOLUME 83.7 fl (81.0-99.0); MEAN CORPUSCULAR HGB 25.2 pg (27.0-31.0); MEAN CORPUSCULAR HGB CONC 30.2 g/dl (33.0-37.0); MEAN PLATELET VOLUME 11.2 fl (9.6-12.3); MONO # 0.5 10*3/uL (0.1-1.0); MONO % 11.9 % (3.0-9.0); NEUT # 2.2 10*3/uL (2.3-7.9); NEUT % 48.5 % (47.0-73.0); PLATELET COUNT AUTOMATED 288 10*3/uL (130-400); RED BLOOD COUNT 4.04 10*6/uL (4.10-5.10); RED CELL DISTRI WIDTH 15.3 % (0-14.5); WHITE BLOOD COUNT 4.5 10*3/uL (4.8-10.8)
[2016-12-04 06:26] LABS: BUN 14 mg/dl (7-24); CARBON DIOXIDE 31 mmol/L (21-32); CHLORIDE 107 mmol/L (98-107); EST GLOM FILT AFRICAN AMERICAN > 60 ml/min; GLUCOSE 124 mg/dL (65-99); POTASSIUM 4.2 mmol/L (3.5-5.1); SODIUM 142 mmol/L (136-145)
[2016-12-04 08:00] VITALS: BP 143/85
[2016-12-04] MEDS ORDERED: CLONAZEPAM1 MG PO (08:17)
[2016-12-04] MEDS ORDERED: CIPRO500 MG PO (08:17)
[2016-12-04] MEDS ORDERED: COLCHICINE0.6 M1 PO (08:17)
[2016-12-04] MEDS ORDERED: ZOLPIDEM TART10 MG PO (08:17)
[2016-12-04] MEDS ORDERED: NORCO 7.5-3251 EACH PO (08:17)
[2016-12-04 12:00] VITALS: BP 134/66
== END 2016-12-04 15:20 | DRG 689 ==
LOC: ED 13:02 → 5E 16:17 → EDHOLD 16:17 → 5E 17:15
PROVIDERS: Internal Medicine; Student in an Organized Health Care Education/Training Program
DX: N39.0 Urinary tract infection, site not specified (principal); E43 Unspecified severe protein-calorie malnutrition; G93.41 Metabolic encephalopathy; I10 Essential (primary) hypertension; B96.1 Klebsiella pneumoniae [K. pneumoniae] as the cause of diseases classified elsewhere; E11.9 Type 2 diabetes mellitus without complications; F33.1 Major depressive disorder, recurrent, moderate; R62.7 Adult failure to thrive; G89.29 Other chronic pain; M54.5 Low back pain; W19.XXXA Unspecified fall, initial encounter; J45.20 Mild intermittent asthma, uncomplicated; E78.2 Mixed hyperlipidemia; M10.071 Idiopathic gout, right ankle and foot; M48.00 Spinal stenosis, site unspecified; Z68.35 Body mass index [BMI] 35.0-35.9, adult; Z79.84 Long term (current) use of oral hypoglycemic drugs; Y93.89 Activity, other specified; Y92.098 Other place in other non-institutional residence as the place of occurrence of the external cause; Y99.8 Other external cause status

== ENCOUNTER → 2017-03-11 | Outpatient (CLI) | payer MEDICARE ==
[~2017-03-11] MED LIST changes: +CIPRO500 MG PO; +COLCHICINE0.6 M1 PO
== END | disposition home or self-care (01) ==
LOC: MAMMO 02-28 14:00
DX: Z12.31 Encounter for screening mammogram for malignant neoplasm of breast (principal)

== ENCOUNTER 2017-10-31 20:43 | Emergency (ER) | payer OTHER ==
[~2017-10-31] VITALS: Ht 157.4 cm; Wt 81.6 kg
[2017-10-31 20:46] VITALS: BP 256/204
[2017-10-31] MEDS ORDERED: PROAIR HFA8.5 GM INH (21:49)
[2017-10-31] MEDS ORDERED: TESSALON PERLE100 M1 PO (21:49)
[2017-10-31] MEDS ORDERED: LEVAQUIN500 M2 PO (21:49)
== END 2017-10-31 21:50 | disposition left against medical advice (07) ==
LOC: ED 20:43
DX: R42 Dizziness and giddiness (principal); R06.02 Shortness of breath; J45.909 Unspecified asthma, uncomplicated; G89.29 Other chronic pain; M10.9 Gout, unspecified; I11.0 Hypertensive heart disease with heart failure; I50.30 Unspecified diastolic (congestive) heart failure; E11.9 Type 2 diabetes mellitus without complications; Z90.89 Acquired absence of other organs; Z90.710 Acquired absence of both cervix and uterus; Z90.49 Acquired absence of other specified parts of digestive tract; Z79.899 Other long term (current) drug therapy; Z88.1 Allergy status to other antibiotic agents; Z79.82 Long term (current) use of aspirin

== ENCOUNTER → 2018-03-12 | Outpatient (CLI) | payer OTHER ==
[~2018-03-12] MED LIST changes: +LEVAQUIN500 M2 PO; +PROAIR HFA8.5 GM INH; +TESSALON PERLE100 M1 PO
== END | disposition home or self-care (01) ==
LOC: RAD/SH 07:36 → RAD 08:00
DX: R13.10 Dysphagia, unspecified (principal)

== ENCOUNTER 2018-08-17 14:40 | Emergency (ER) | payer OTHER ==
[~2018-08-17] VITALS: Ht 157.4 cm; Wt 101.2 kg
--- NOTE | ~2018-08-17 | EKG ---
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
[2018-08-17 15:06] LABS: BASO # 0.1 10*3/uL (0.0-0.1); BASO % 1.1 % (0.0-1.0); EOS # 0.4 10*3/uL (0.0-0.4); HEMOGLOBIN 13.2 g/dl (12.0-16.0); LYMPH # 1.1 10*3/uL (1.3-4.4); LYMPH % 14.4 % (27.0-41.0); MEAN CELL VOLUME 89.5 fl (81.0-99.0); MEAN CORPUSCULAR HGB 28.8 pg (27.0-31.0); MEAN CORPUSCULAR HGB CONC 32.2 g/dl (33.0-37.0); MEAN PLATELET VOLUME 11.5 fl (9.6-12.3); MONO # 0.5 10*3/uL (0.1-1.0); NEUT # 5.2 10*3/uL (2.3-7.9); NEUT % 70.7 % (47.0-73.0); PLATELET COUNT AUTOMATED 170 10*3/uL (130-400); RED BLOOD COUNT 4.58 10*6/uL (4.10-5.10); RED CELL DISTRI WIDTH 15.2 % (0-14.5); WHITE BLOOD COUNT 7.3 10*3/uL (4.8-10.8)
[2018-08-17 15:24] LABS: ALBUMIN 3.1 gm/dl (3.1-4.5); ALKALINE PHOSPHATASE 128 U/L (45-117); BUN 16 mg/dl (7-24); CHLORIDE 111 mmol/L (98-107); CREATININE 1.31 mg/dL (0.55-1.02); POTASSIUM 4.5 mmol/L (3.5-5.1); SGOT/AST 16 IU/L (3-35); SGPT/ALT 24 U/L (12-78); SODIUM 143 mmol/L (136-145); TOTAL PROTEIN 6.7 gm/dL (6.4-8.2); TROPONIN I < 0.015 ng/ml (<0.045)
[2018-08-17 15:37] LABS: ACT PARTIAL THROMBO TIME 22.7 SECONDS (20.8-31.5)
[2018-08-17 18:40] VITALS: BP 134/62
[2018-11-18] MEDS ORDERED: MELOXICAM7.5 MG PO (11:30)
[2018-11-18] MEDS ORDERED: SYMB80 INH (11:31)
[2018-11-18] MEDS ORDERED: MEGA BIOTIN10000 MCG PO (11:33)
[2018-11-18] MEDS ORDERED: IRON CHEWS15 MG PO (11:33)
[2018-11-18] MEDS ORDERED: NEURONTIN300 MG PO (11:34)
[2018-11-18] MEDS ORDERED: MELATONIN5 M1 PO (11:35)
[2018-11-18] MEDS ORDERED: AMITRIPTYLINE25 MG PO (11:37)
== END 2018-08-17 18:47 | disposition short-term general hospital (02) ==
LOC: ED 14:40
PROVIDERS: Emergency Medicine
DX: R47.81 Slurred speech (principal); R53.1 Weakness; I10 Essential (primary) hypertension; E11.9 Type 2 diabetes mellitus without complications; J45.909 Unspecified asthma, uncomplicated; M10.9 Gout, unspecified; R79.1 Abnormal coagulation profile; Z88.1 Allergy status to other antibiotic agents; Z79.899 Other long term (current) drug therapy; Z79.82 Long term (current) use of aspirin

== ENCOUNTER → 2018-11-18 | Outpatient (CLI) | payer OTHER ==
[~2018-11-18] MED LIST changes: +AMITRIPTYLINE25 MG PO; +IRON CHEWS15 MG PO; +MEGA BIOTIN10000 MCG PO; +MELATONIN5 M1 PO; +MELOXICAM7.5 MG PO; +NEURONTIN300 MG PO; +SYMB80 INH
--- NOTE | ~2018-11-18 | ST ---
[place], [place] EXERCISE STRESS TEST REPORT NAME: [facility]ANC[facility]Z POLANCO [facility] [id number] UNIT #: [id number] ROOM: DOCTOR: FELICIA MILLER MD BIRTHDATE: [birth year] DOS: 11/18/2018 LEXISCAN PORTION OF THE LEXISCAN CARDIOLITE A 0.4 mg Lexiscan, duration of 10 seconds. Baseline cardiogram sinus rhythm with incomplete right bundle branch pattern. With Lexiscan, no new EKG changes. No chest pain. Blood pressure and heart rate response was normal. Nuclear images will be reported separately. FELICIA MILLER MD CM:STRESS:EXERCISE STRESS TEST REPORT [id number] FELICIA MILLER MD
--- NOTE | 2018-11-18 08:23 | NUR ---
INFORMED CONSENT SIGNED FOR LEXISCAN STRESS TEST WITH DR. GEE. PRIOR TO START OF TEST DR. GEE CALLED IN TO SEE IF DR. MILLER COULD DO TEST. HE AGREES TO DO TEST. RESTING EKG NSR, HR 96, BP 110/68. PULSE OX 97% AND LUNGS CLEAR. COMPLETED ONE MINUTE OF A LEXISCAN PROTOCOL RECEIVING LEXISCAN 0.4MG IV. NO ARRHYTHMIAS OR ST CHANGES NOTED. PT C/O DIZZINESS AND WEIRD FEELING. LAST RECOVERY HR 111, BP 126/60. WAITING NUCLEAR SCANNING IN STABLE CONDITION.
== END | disposition home or self-care (01) ==
LOC: CARD 01:04
DX: R53.81 Other malaise (principal); R94.31 Abnormal electrocardiogram [ECG] [EKG]

== ENCOUNTER → 2019-02-18 | Outpatient (CLI) | payer OTHER | END | disposition home or self-care (01) | LOC: RAD 12:55 | DX: M51.36 Other intervertebral disc degeneration, lumbar region (principal); W07.XXXD Fall from chair, subsequent encounter ==

== ENCOUNTER 2019-04-02 20:27 | Inpatient (IN) | payer OTHER ==
[~2019-04-02] VITALS: Ht 157.5 cm; Wt 94.5 kg
[2019-04-02 20:27] VITALS: BP 130/65
[~2019-04-02 20:27] MED LIST changes: +BIOTIN5000 MC1 PO; +GLUCOPHAGE500 M1 PO; -MEGA BIOTIN10000 MCG PO; -METFORMIN HCL500 MG PO
--- NOTE | 2019-04-02 20:32 | NUR ---
PATIENT NOT ON [facility]K [facility]KE[facility] AWARE.
[2019-04-02 20:47] LABS: BASO # 0.1 10*3/uL (0.0-0.1); BASO % 0.4 % (0.0-1.0); EOS # 0.4 10*3/uL (0.0-0.4); EOS % 3.4 % (1.0-4.0); HEMATOCRIT 38.1 % (37.0-47.0); HEMOGLOBIN 12.3 g/dl (12.0-16.0); LYMPH # 1.2 10*3/uL (1.3-4.4); LYMPH % 10.3 % (27.0-41.0); MEAN CELL VOLUME 93.2 fl (81.0-99.0); MEAN CORPUSCULAR HGB 30.1 pg (27.0-31.0); MEAN CORPUSCULAR HGB CONC 32.3 g/dl (33.0-37.0); MONO % 8.9 % (3.0-9.0); NEUT # 8.8 10*3/uL (2.3-7.9); NEUT % 76.3 % (47.0-73.0); PLATELET COUNT AUTOMATED 194 10*3/uL (130-400); RED BLOOD COUNT 4.09 10*6/uL (4.10-5.10); WHITE BLOOD COUNT 11.5 10*3/uL (4.8-10.8)
[2019-04-02 21:00] VITALS: BP 126/66
[2019-04-02 21:12] LABS: ALKALINE PHOSPHATASE 117 U/L (45-117); BUN 16 mg/dl (7-24); CHLORIDE 107 mmol/L (98-107); CREATININE 1.39 mg/dL (0.55-1.02); POTASSIUM 4.2 mmol/L (3.5-5.1); SGOT/AST 21 IU/L (3-35); SGPT/ALT 16 U/L (12-78); SODIUM 139 mmol/L (136-145); TOTAL PROTEIN 7.2 gm/dL (6.4-8.2)
[2019-04-02 21:13] LABS: TROPONIN I < 0.015 ng/ml (<0.045)
[2019-04-02 21:23] LABS: ACT PARTIAL THROMBO TIME 27.3 SECONDS (20.0-32.1)
[2019-04-02 21:30] VITALS: BP 126/68
[2019-04-02 22:00] VITALS: BP 129/68
--- NOTE | 2019-04-02 22:15 | NUR ---
Time: 2254 A 78 year old FEMALE admitted to 5E under services of DR. GERARD WALTERS,ARDEN. Pt. arrived via CART from ER. Chief complaint: DYSPNEA NICOLE ORTIZ
[2019-04-02 22:55] VITALS: BP 101/81
--- NOTE | 2019-04-03 00:01 | NUR ---
CALL PLACED TO DR. GEE FOR ADMISSION ORDERS, ORDERS FOR SOLU-MEDROL, DUO-NEB, OXYGEN FOTR SATS <92, [place], ADVISED SHE WILL ADRESSS PATIENTS ROUTINE MEDICATIONS AND DIET LATER TODAY.
[2019-04-03] MEDS ORDERED: MECLIZINE HYD12.5 MG PO (00:10)
[2019-04-03] MEDS ORDERED: MYRBETRIQ50 M1 PO (00:10)
[2019-04-03] MEDS ORDERED: IBU800 MG PO (00:12)
[2019-04-03] MEDS ORDERED: TERAZOSIN HCL1 M1 PO (00:15)
--- NOTE | 2019-04-03 01:15 | NUR ---
PATIENT REMOVED HER IV, STATED SHE IS ALLERGIC TO PLASTIC TAPE. SHE DENIES HAVING PROBLEMS WITH THE CLEAR FILM DRESSING.
--- NOTE | 2019-04-03 04:30 | NUR ---
[facility]
--- NOTE | 2019-04-03 04:45 | NUR ---
CALLED TO PATIENTS ROOM, SHE REPORTED SHE DOESN'T FEEL WELL AT ALL, SHE C/O BEING SHAKEY,AND THAT SHE WAS SWEATING SO BAD THAT HER HEAD WAS WET, UPON ASSESMENT HER HAIR WAS DRY, BLOOD SUGAR CHECKED NURSING MEASURE RESULT 217 BP 160/88, P 76, R 20, T98.2, O2 95% ON ROOM AIR. CALL PLACED TO DR. GEE, ORDER RECEIVED TO D/C ROCEPHEN GIVE ZITHROMAX 500MG IV DAILY, AND FOR TROPONINS X 3
[2019-04-03 08:00] VITALS: BP 125/83
--- NOTE | 2019-04-03 11:00 | NUR ---
Mail Handler Equipment Operator in to talk to patient. Patient states lives at home alone with her sister and daughter checking in on her. There are 4 steps in the home. Physician: Dr. Gretta Weldon [facility]acy: [facility] Home health services: she has a cleaning lady come once a week Patient's level of ADLs: MINIMAL ASSIST Patient has working utilities: yes DME: cane Follow-up physician's appointment after d/c: she prefers to make her own follow up appt after discharge Does patient want to access PORTAL?: no Discharge plan discussed with patient. She is sitting on the edge of her bed without distress noted. She lives at home alone with her daughter and sister checking in on her. She is independent in her ADLs and ambulates with a cane. Discussed home health care services and she denies any home needs at this time. When medically stable she will be discharged to home. Daughter will provide transportation on discharge. DENICE JIMENEZ
[2019-04-03 12:00] VITALS: BP 127/60
[2019-04-03 16:00] VITALS: BP 118/60
[2019-04-03 20:00] VITALS: BP 133/58
--- NOTE | 2019-04-03 20:53 | NUR ---
PT REQUESTING TO NOT BE DISTURBED THROUGH THE NIGHT.
[2019-04-04] VITALS: BP 123/59
--- NOTE | 2019-04-04 03:41 | NUR ---
24 HR chart check completed.
[2019-04-04 07:04] LABS: BASO % 0.2 % (0.0-1.0); HEMATOCRIT 33.9 % (37.0-47.0); HEMOGLOBIN 10.8 g/dl (12.0-16.0); LYMPH # 0.5 10*3/uL (1.3-4.4); LYMPH % 5.4 % (27.0-41.0); MEAN CELL VOLUME 94.2 fl (81.0-99.0); MEAN CORPUSCULAR HGB CONC 31.9 g/dl (33.0-37.0); MEAN PLATELET VOLUME 11.3 fl (9.6-12.3); MONO # 0.5 10*3/uL (0.1-1.0); MONO % 5.4 % (3.0-9.0); NEUT # 7.7 10*3/uL (2.3-7.9); NEUT % 87.2 % (47.0-73.0); PLATELET COUNT AUTOMATED 215 10*3/uL (130-400); RED CELL DISTRI WIDTH 14.7 % (0-14.5); WHITE BLOOD COUNT 8.9 10*3/uL (4.8-10.8)
[2019-04-04 07:15] LABS: CREATININE 1.51 mg/dL (0.55-1.02); POTASSIUM 4.2 mmol/L (3.5-5.1)
[2019-04-04 08:00] VITALS: BP 133/51
[2019-04-04 12:00] VITALS: BP 121/51
[2019-04-04 16:00] VITALS: BP 114/50
--- NOTE | 2019-04-04 19:30 | NUR ---
24 HOUR CHART CHECK COMPLETE.
[2019-04-04 20:00] VITALS: BP 138/50
--- NOTE | 2019-04-04 23:34 | NUR ---
SPOKE FROM [facility] FOR RESPIRATORY ABOUT PT REQUEST FOR A BREATHING TREATMENT.
[2019-04-05] VITALS: BP 136/54
[2019-04-05 08:00] VITALS: BP 124/83
[2019-04-05 12:00] VITALS: BP 129/64
[2019-04-05 16:00] VITALS: BP 135/72
--- NOTE | 2019-04-05 19:52 | NUR ---
PT C/O CONSTIPATION. SPOKE WITH Guilherme GILLIAM. TAKEN FOR DULCOLAX SUPPOSITORY AND COLACE 200MG/DAY.
[2019-04-05 20:00] VITALS: BP 144/57
--- NOTE | 2019-04-05 20:00 | NUR ---
24 HOUR CHART CHECK COMPLETE.
[2019-04-06] VITALS: BP 149/64
[2019-04-06 08:00] VITALS: BP 153/61
--- NOTE | 2019-04-06 08:16 | NUR ---
MEDICATED WITH PRN PO ROBITUSSIN FOR NONPRODUCTIVE COUGH.
--- NOTE | 2019-04-06 09:12 | NUR ---
DR. AVILES AWARE OF CONSULT FOR BRONCHOSCOPY AND HAS ENTERED ORDERS FOR THE PROCEDURE.
[2019-04-06 12:00] VITALS: BP 149/64
[2019-04-06 16:00] VITALS: BP 146/69
[2019-04-06 20:00] VITALS: BP 179/72
--- NOTE | 2019-04-06 20:00 | NUR ---
24 HOUR CHART CHECK COMPLETE.
[2019-04-07] VITALS (9 sets, daily range): BP systolic 143–178; BP diastolic 62–85
--- NOTE | 2019-04-07 07:30 | NUR ---
PATIENT TO OR BY BED FOR BRONCHOSCOPY
--- NOTE | 2019-04-07 09:44 | NUR ---
PATIENT RETURNED FROM BRONCHOSCOPY, SEE SHIFT ASSESSMENT FOR DETAILS.
--- NOTE | 2019-04-07 10:04 | NUR ---
MEDICATED WITH PRN PO ROBITUSSIN FOR NONPRODUCTIVE COUGH.
--- NOTE | 2019-04-07 11:00 | NUR ---
Registered Client Associate in to see patient. No new needs or request at this time. She denies any home needs. When medically stable she will be discharged to home.
--- NOTE | 2019-04-07 17:20 | NUR ---
MEDICATED WITH PRN PO MILK OF MAGNESIA FOR CONSTIPATION, ALSO PRN ROBITUSSIN FOR NONPRODUCTIVE COUGH.
[2019-04-08] VITALS: BP 152/68
[2019-04-08 08:00] VITALS: BP 155/71
--- NOTE | 2019-04-08 09:00 | NUR ---
Protection Officer in to see patient. No new needs or request at this time. She denies any home needs. When medically stable she will be discharged to home. Per multidisciplinary discharge planning meeting Dr. Weldon is waiting for final culture results prior to discharging.
[2019-04-08 12:00] VITALS: BP 127/88; BP 180/76
[2019-04-08 16:00] VITALS: BP 161/66
[2019-04-08 16:04] LABS: ACID FAST SPEC PROCESSING Concentration (.)
[2019-04-08 20:00] VITALS: BP 155/60
[2019-04-09] VITALS: BP 146/55
--- NOTE | 2019-04-09 | NUR ---
SLEEPING. NO DISTRESS NOTED. RESPIRATIONS EASY. VSS. CALL LIGHT WITHIN REACH
--- NOTE | 2019-04-09 01:21 | NUR ---
24 HR chart check completed.
--- NOTE | 2019-04-09 02:20 | NUR ---
PATIENT RESTING WITH EYES CLOSED. RESPIRATIONS EASY AND UNLABORED. CALL LIGHT WITHIN REACH.
[2019-04-09 07:30] LABS: HEMATOCRIT 37.2 % (37.0-47.0); HEMOGLOBIN 12.1 g/dl (12.0-16.0); MEAN CELL VOLUME 92.1 fl (81.0-99.0); MEAN CORPUSCULAR HGB CONC 32.5 g/dl (33.0-37.0); MEAN PLATELET VOLUME 10.6 fl (9.6-12.3); PLATELET COUNT AUTOMATED 245 10*3/uL (130-400); RED BLOOD COUNT 4.04 10*6/uL (4.10-5.10); RED CELL DISTRI WIDTH 14.7 % (0-14.5)
[2019-04-09 07:44] LABS: CREATININE 1.29 mg/dL (0.55-1.02); POTASSIUM 4.6 mmol/L (3.5-5.1)
[2019-04-09 07:52] LABS: PLATELET SUFFICIENCY NORMAL (NORMAL); TOTAL CELLS COUNTED 100 #CELLS
[2019-04-09 08:00] VITALS: BP 164/85
--- NOTE | 2019-04-09 11:00 | NUR ---
Raw Sampler in to see patient. No new needs or request at this time. She denies any home needs. When medically stable she will be discharged to home. Per multidisciplinary discharge planning meeting Dr. Weldon is waiting for final culture results prior to discharging. Discharge plan is for tomorrow.
[2019-04-09 12:00] VITALS: BP 162/68
[2019-04-09 16:00] VITALS: BP 156/71
[2019-04-09 20:00] VITALS: BP 144/66
--- NOTE | 2019-04-09 21:00 | NUR ---
RESTING IN BED WITH NO ACUTE DISTRESS NOTED. RESPIRATIONS EASY. LUNGS DIMINISHED WITH EXP WHEEZES. PULSE OX 95% RA. CLAIMS NON-PROD COUGH, NONE NOTED. CALL LIGHT WITHIN REACH. NO VOICED COMPLAINTS
--- NOTE | 2019-04-09 23:50 | NUR ---
24 HR chart check completed.
[2019-04-10] VITALS: BP 160/71
--- NOTE | 2019-04-10 06:00 | NUR ---
RESTED THROUGHOUT NIGHT WITH NO DISTRESS NOTED. RESPIRATIONS EASY. C/O "I DON'T THINK I'M READY TO GO HOME TODAY." INSTRUCTED TO NOTIFY DR. KATINA HYMAN WITHIN REACH.
--- NOTE | 2019-04-10 09:00 | NUR ---
Bareback Rider in to see patient. No new needs or request at this time. She denies any home needs. She states she is not ready to go home today that she had a lot of wheezing through the night. She denies any home needs. When medically stable she will be discharged to home.
[2019-04-10 10:02] VITALS: BP 174/84
[2019-04-10 16:00] VITALS: BP 145/68
[2019-04-10 20:00] VITALS: BP 168/67
--- NOTE | 2019-04-10 20:00 | NUR ---
24 HOUR CHART CHECK COMPLETE.
[2019-04-11] VITALS: BP 167/75
[2019-04-11 06:45] LABS: HEMATOCRIT 38.4 % (37.0-47.0); HEMOGLOBIN 12.4 g/dl (12.0-16.0); MEAN CELL VOLUME 92.5 fl (81.0-99.0); MEAN CORPUSCULAR HGB 29.9 pg (27.0-31.0); MEAN CORPUSCULAR HGB CONC 32.3 g/dl (33.0-37.0); MEAN PLATELET VOLUME 11.2 fl (9.6-12.3); PLATELET COUNT AUTOMATED 245 10*3/uL (130-400); RED BLOOD COUNT 4.15 10*6/uL (4.10-5.10); RED CELL DISTRI WIDTH 15.1 % (0-14.5); WHITE BLOOD COUNT 11.7 10*3/uL (4.8-10.8)
[2019-04-11 07:17] LABS: CREATININE 1.28 mg/dL (0.55-1.02); POTASSIUM 4.6 mmol/L (3.5-5.1)
[2019-04-11 07:53] LABS: PLATELET SUFFICIENCY NORMAL (NORMAL); TOTAL CELLS COUNTED 100 #CELLS
[2019-04-11 08:00] VITALS: BP 153/68
[2019-04-11] MEDS ORDERED: PREDNISONE5 MG PO (09:09)
[2019-04-11] MEDS ORDERED: CIPRO500 MG PO (09:09)
[2019-04-11] MEDS ORDERED: GLIPIZIDE XL10 M1 PO (09:09)
--- NOTE | 2019-04-11 12:45 | NUR ---
LEAVING IN CARE OF PA AND DAUGHTER VIA WHEELCHAIR ESCORT.
[2019-05-20 16:05] LABS: ACID FAST CULTURE Negative (.)
== END 2019-04-11 12:45 | disposition home or self-care (01) | DRG 178 ==
LOC: ED 20:27 → EDHOLD 22:12 → 5E 22:12
PROVIDERS: Emergency Medicine; Internal Medicine Critical Care Medicine; ADMIT Internal Medicine
PROC: 0BC78ZZ Extirpation of Matter from Left Main Bronchus, Via Natural or Artificial Opening Endoscopic (ICD-10-PCS; principal; 2019-04-07)
PROC: 0BC88ZZ Extirpation of Matter from Left Upper Lobe Bronchus, Via Natural or Artificial Opening Endoscopic (ICD-10-PCS; principal; 2019-04-07)
PROC: 0BC68ZZ Extirpation of Matter from Right Lower Lobe Bronchus, Via Natural or Artificial Opening Endoscopic (ICD-10-PCS; principal; 2019-04-07)
PROC: 0BC38ZZ Extirpation of Matter from Right Main Bronchus, Via Natural or Artificial Opening Endoscopic (ICD-10-PCS; principal; 2019-04-07)
PROC: 0B928ZZ Drainage of Carina, Via Natural or Artificial Opening Endoscopic (ICD-10-PCS; principal; 2019-04-07)
PROC: 0BC18ZZ Extirpation of Matter from Trachea, Via Natural or Artificial Opening Endoscopic (ICD-10-PCS; principal; 2019-04-07)
PROC: 0BC98ZZ Extirpation of Matter from Lingula Bronchus, Via Natural or Artificial Opening Endoscopic (ICD-10-PCS; principal; 2019-04-07)
PROC: 0BC58ZZ Extirpation of Matter from Right Middle Lobe Bronchus, Via Natural or Artificial Opening Endoscopic (ICD-10-PCS; principal; 2019-04-07)
PROC: 0BC48ZZ Extirpation of Matter from Right Upper Lobe Bronchus, Via Natural or Artificial Opening Endoscopic (ICD-10-PCS; principal; 2019-04-07)
PROC: 0BCB8ZZ Extirpation of Matter from Left Lower Lobe Bronchus, Via Natural or Artificial Opening Endoscopic (ICD-10-PCS; principal; 2019-04-07)
DX: J15.0 Pneumonia due to Klebsiella pneumoniae (principal); J44.1 Chronic obstructive pulmonary disease with (acute) exacerbation; N17.9 Acute kidney failure, unspecified; J45.41 Moderate persistent asthma with (acute) exacerbation; T17.590A Other foreign object in bronchus causing asphyxiation, initial encounter; T17.490A Other foreign object in trachea causing asphyxiation, initial encounter; J44.0 Chronic obstructive pulmonary disease with (acute) lower respiratory infection; G89.29 Other chronic pain; M54.40 Lumbago with sciatica, unspecified side; R29.6 Repeated falls; M10.9 Gout, unspecified; G47.00 Insomnia, unspecified; E78.2 Mixed hyperlipidemia; F32.9 Major depressive disorder, single episode, unspecified; F41.1 Generalized anxiety disorder; Z60.2 Problems related to living alone; J20.9 Acute bronchitis, unspecified; K21.0 Gastro-esophageal reflux disease with esophagitis; I12.9 Hypertensive chronic kidney disease with stage 1 through stage 4 chronic kidney disease, or unspecified chronic kidney disease; E11.22 Type 2 diabetes mellitus with diabetic chronic kidney disease; E11.65 Type 2 diabetes mellitus with hyperglycemia; T38.0X5A Adverse effect of glucocorticoids and synthetic analogues, initial encounter; R32 Unspecified urinary incontinence; Z96.653 Presence of artificial knee joint, bilateral; X58.XXXA Exposure to other specified factors, initial encounter; N18.3 Chronic kidney disease, stage 3 (moderate); E66.01 Morbid (severe) obesity due to excess calories; Z88.1 Allergy status to other antibiotic agents; Z91.048 Other nonmedicinal substance allergy status; Z79.899 Other long term (current) drug therapy; Z79.82 Long term (current) use of aspirin; Z91.81 History of falling; Z86.73 Personal history of transient ischemic attack (TIA), and cerebral infarction without residual deficits; Z87.440 Personal history of urinary (tract) infections; Z90.710 Acquired absence of both cervix and uterus; Z90.49 Acquired absence of other specified parts of digestive tract; Z85.820 Personal history of malignant melanoma of skin; Z82.5 Family history of asthma and other chronic lower respiratory diseases; Z81.8 Family history of other mental and behavioral disorders; Z82.49 Family history of ischemic heart disease and other diseases of the circulatory system; Z79.4 Long term (current) use of insulin; Z79.1 Long term (current) use of non-steroidal anti-inflammatories (NSAID); Y92.89 Other specified places as the place of occurrence of the external cause; Y93.89 Activity, other specified; Y99.8 Other external cause status; Z68.38 Body mass index [BMI] 38.0-38.9, adult

== ENCOUNTER → 2019-06-12 | Outpatient (CLI) | payer OTHER ==
[~2019-06-12] MED LIST changes: +GLIPIZIDE XL10 M1 PO; +IBU800 MG PO; +MECLIZINE HYD12.5 MG PO; +MYRBETRIQ50 M1 PO; +TERAZOSIN HCL1 M1 PO
[2019-06-12 13:20] LABS: BASO # 0.1 10*3/uL (0.0-0.1); BASO % 0.8 % (0.0-1.0); EOS # 0.3 10*3/uL (0.0-0.4); EOS % 4.8 % (1.0-4.0); HEMATOCRIT 39.3 % (37.0-47.0); HEMOGLOBIN 12.7 g/dl (12.0-16.0); LYMPH # 1.5 10*3/uL (1.3-4.4); LYMPH % 24.3 % (27.0-41.0); MEAN CELL VOLUME 92.5 fl (81.0-99.0); MEAN CORPUSCULAR HGB 29.9 pg (27.0-31.0); MEAN CORPUSCULAR HGB CONC 32.3 g/dl (33.0-37.0); MEAN PLATELET VOLUME 10.8 fl (9.6-12.3); MONO # 0.5 10*3/uL (0.1-1.0); MONO % 8.2 % (3.0-9.0); NEUT # 3.9 10*3/uL (2.3-7.9); NEUT % 61.6 % (47.0-73.0); PLATELET COUNT AUTOMATED 210 10*3/uL (130-400); RED BLOOD COUNT 4.25 10*6/uL (4.10-5.10); RED CELL DISTRI WIDTH 13.4 % (0-14.5); WHITE BLOOD COUNT 6.3 10*3/uL (4.8-10.8)
[2019-06-12 13:39] LABS: ALBUMIN 3.1 gm/dl (3.1-4.5); CREATININE 1.35 mg/dL (0.55-1.02); FREE T4 0.9 ng/dl (0.76-1.46); POTASSIUM 4.4 mmol/L (3.5-5.1); TOTAL PROTEIN 6.7 gm/dL (6.4-8.2)
[2019-06-12 13:43] LABS: THYROID STIM HORMONE (HS) 1.67 uIU/ml (0.358-4.75)
== END | disposition home or self-care (01) ==
LOC: RAD 06-09 13:30 → LAB 12:47 → RAD 13:30
PROVIDERS: Internal Medicine
DX: Z00.00 Encounter for general adult medical examination without abnormal findings (principal); I12.9 Hypertensive chronic kidney disease with stage 1 through stage 4 chronic kidney disease, or unspecified chronic kidney disease; E11.22 Type 2 diabetes mellitus with diabetic chronic kidney disease; N18.3 Chronic kidney disease, stage 3 (moderate); E55.9 Vitamin D deficiency, unspecified; E78.2 Mixed hyperlipidemia; Z78.0 Asymptomatic menopausal state; D50.8 Other iron deficiency anemias; Z90.710 Acquired absence of both cervix and uterus

== ENCOUNTER 2019-11-24 14:35 | Inpatient (IN) | payer OTHER ==
[~2019-11-24] VITALS: Ht 157.4 cm; Wt 103.0 kg
[2019-11-24 15:26] LABS: BASO # 0.1 10*3/uL (0.0-0.1); EOS # 0.2 10*3/uL (0.0-0.4); EOS % 3.4 % (1.0-4.0); HEMATOCRIT 37.2 % (37.0-47.0); LYMPH # 1.1 10*3/uL (1.3-4.4); LYMPH % 21.8 % (27.0-41.0); MEAN CELL VOLUME 89.9 fl (81.0-99.0); MEAN CORPUSCULAR HGB 28.3 pg (27.0-31.0); MEAN CORPUSCULAR HGB CONC 31.5 g/dl (33.0-37.0); MEAN PLATELET VOLUME 11.5 fl (9.6-12.3); MONO # 0.7 10*3/uL (0.1-1.0); MONO % 12.6 % (3.0-9.0); NEUT # 3.1 10*3/uL (2.3-7.9); NEUT % 60.2 % (47.0-73.0); PLATELET COUNT AUTOMATED 203 10*3/uL (130-400); RED BLOOD COUNT 4.14 10*6/uL (4.10-5.10); RED CELL DISTRI WIDTH 15.1 % (0-14.5); WHITE BLOOD COUNT 5.2 10*3/uL (4.8-10.8)
[2019-11-24 15:35] LABS: ACT PARTIAL THROMBO TIME 22.9 SECONDS (20.0-32.1); INTERNATIONAL NORM RATIO 0.9 (2.0-3.5)
[2019-11-24 15:43] LABS: ALBUMIN 2.9 gm/dl (3.1-4.5); ALKALINE PHOSPHATASE 116 U/L (45-117); BUN 19 mg/dl (7-24); CHLORIDE 108 mmol/L (98-107); CREATININE 1.11 mg/dL (0.55-1.02); POTASSIUM 4.3 mmol/L (3.5-5.1); SGOT/AST 14 IU/L (3-35); SGPT/ALT 20 U/L (12-78); SODIUM 142 mmol/L (136-145); TOTAL PROTEIN 6.4 gm/dL (6.4-8.2)
[2019-11-24 15:44] LABS: TROPONIN I < 0.015 ng/ml (<0.045)
[2019-11-24 16:26] VITALS: BP 127/89
[2019-11-24 18:15] VITALS: BP 146/67
--- NOTE | 2019-11-24 18:16 | NUR ---
Time: 1809 A 79 year old FEMALE admitted to 4E under services of ARDEN CROWLEY MD. Pt. arrived via bed from ER. Chief complaint: ASTHMA EXACERBATION. ANNIA RICK
--- NOTE | 2019-11-24 19:40 | NUR ---
PATIENT IS AAOX3 RESTING IN BED WITH EASY AND REGULAR RESPERS ON ROOM AIR. ASSESSMENT IS COMPLETE WITH NO C/O OR S/S OF DISTRESS NOTED AT THIS TIME. BED IS LOW, LOCKED, AND CALL LIGHT IS WITHIN REACH. WILL CONTINUE TO MONITOR, SEE SHIFT ASSESSMENT.
--- NOTE | 2019-11-24 19:56 | NUR ---
PATIENT REQUESTING PILLOW AND BLANKET FOR RECLINING CHAIR. PILLOW AND BLANKET PROVIDED.
[2019-11-24 20:00] VITALS: BP 120/67
[2019-11-25] VITALS: BP 133/70
--- NOTE | 2019-11-25 00:02 | NUR ---
MULTIPLE CALLS PLACED TO DR. GEE IN REGARDS TO PATIENT WANTING HOME MEDICATIONS. ELAVIL, KLONOPIN, AND GABAPENTIN CONTINUED.
--- NOTE | 2019-11-25 03:35 | NUR ---
PATIENT APPEARS TO BE SLEEPING WITH EASY AND REGULAR RESPERS ON ROOM AIR. CALL LIGHT IS WITHIN REACH.
--- NOTE | 2019-11-25 03:38 | NUR ---
CHART CHECK COMPLETE.
--- NOTE | 2019-11-25 05:43 | NUR ---
BEDSIDE GLUCOSE 313.
[2019-11-25 06:20] LABS: BASO % 0.2 % (0.0-1.0); EOS % 0.1 % (1.0-4.0); HEMATOCRIT 38.7 % (37.0-47.0); LYMPH # 0.6 10*3/uL (1.3-4.4); LYMPH % 7.1 % (27.0-41.0); MEAN CELL VOLUME 88.6 fl (81.0-99.0); MEAN CORPUSCULAR HGB 28.1 pg (27.0-31.0); MEAN CORPUSCULAR HGB CONC 31.8 g/dl (33.0-37.0); MEAN PLATELET VOLUME 11.8 fl (9.6-12.3); MONO # 0.2 10*3/uL (0.1-1.0); MONO % 1.8 % (3.0-9.0); NEUT # 7.6 10*3/uL (2.3-7.9); NEUT % 89.5 % (47.0-73.0); PLATELET COUNT AUTOMATED 251 10*3/uL (130-400); RED BLOOD COUNT 4.37 10*6/uL (4.10-5.10); RED CELL DISTRI WIDTH 14.7 % (0-14.5); WHITE BLOOD COUNT 8.5 10*3/uL (4.8-10.8)
--- NOTE | 2019-11-25 06:28 | NUR ---
PATIENT AWAKENED EASILY FOR ADMINISTRATION OF AM MEDICATIONS AT 0522. PATIENT TOLERATED WELL, CALL LIGHT IS WITHIN REACH.
[2019-11-25 06:45] LABS: ALBUMIN 3.1 gm/dl (3.1-4.5); CREATININE 1.32 mg/dL (0.55-1.02); POTASSIUM 4.5 mmol/L (3.5-5.1); TOTAL PROTEIN 6.8 gm/dL (6.4-8.2)
[2019-11-25 08:00] VITALS: BP 160/85
--- NOTE | 2019-11-25 09:00 | NUR ---
Cosmetic Dentist in to talk to patient. Patient states lives at home alone with her sister and daughter checking in on her. There are 4 steps in the home. Physician: Dr. Gretta Weldon [facility]: [facility] Home health services: she has a cleaning lady come once a week Patient's level of ADLs: MINIMAL ASSIST Patient has working utilities: yes DME: cane Follow-up physician's appointment after d/c: she prefers to make her own follow up appt after discharge Does patient want to access PORTAL?: no Discharge plan discussed with patient. She lives at home alone with her daughter and sister checking in on her. She is independent in her ADLs and ambulates with a cane. Discussed home health care services and she denies any home needs at this time. When medically stable she will be discharged to home. Daughter will provide transportation on discharge. DENICE JIMENEZ
[2019-11-25 16:00] VITALS: BP 139/76
--- NOTE | 2019-11-25 16:39 | NUR ---
NOTIFIED OF BS, NEW ORDER TO GIVE 25 UNITS OF HER SLIDING SCALE INSULIN
[2019-11-26] VITALS: BP 134/60; BP 97/54
[2019-11-26 05:18] LABS: BILIRUBIN NEGATIVE (NEGATIVE); BLOOD 1+ (NEGATIVE); CLARITY SL CLOUDY (CLEAR); COLOR YELLOW (YELLOW); GLUCOSE 3+ (NEGATIVE); KETONE NEGATIVE (NEGATIVE); LEUKO ESTERASE 1+ (NEGATIVE); NITRITE NEGATIVE (NEGATIVE); UROBILINOGEN 0.2 E.U./dl (0.2-1.0)
[2019-11-26 05:22] LABS: BACTERIA 3+
[2019-11-26 05:23] LABS: RBC 21-30 rbc/hpf (0-2); WBC 21-30 wbc/hpf (0-5)
[2019-11-26 08:00] VITALS: BP 146/74
--- NOTE | 2019-11-26 08:30 | NUR ---
Saddle Lining Stitcher in to see patient. She is sitting up in her bedside chair without distress noted. Discussed home health care services and she denies any home needs. She states her cleaning lady comes once a week on Saturdays. Her sister picks her up on Fridays monthly to get their hair done. She states her sister has an appointment for tomorrow morning at 9am but she doesn't think she will be discharged by then. Dr. Weldon told patient she would be discharged tomorrow. She states she uses a rollator in the house and a cane when outside. She would like a nebulizer for home. CM will speak to Dr. Weldon.
--- NOTE | 2019-11-26 08:35 | NUR ---
Received nebulizer prescription for patient from Dr. Weldon. Will send to [facility].
--- NOTE | 2019-11-26 08:51 | NUR ---
Faxed nebulizer prescription to [facility]. Awaiting response.
--- NOTE | 2019-11-26 09:12 | NUR ---
Routine Klonopin given at this time.
--- NOTE | 2019-11-26 10:00 | NUR ---
Pt states Klonopin effective.
--- NOTE | 2019-11-26 14:42 | NUR ---
Received call from Danielle Rowland at [facility]. They do not take patient's insurance. Faxed nebulizer prescription to [facility]. Awaiting response.
--- NOTE | 2019-11-26 15:29 | NUR ---
Received call from Haleigh at [facility]. They do not take patient's insurance. She states all [facility] Community Plans have to go to Medical Services. Faxed referral to Medical Services. Awaiting response.
[2019-11-26 16:00] VITALS: BP 138/65
--- NOTE | 2019-11-26 23:12 | NUR ---
24 HR chart check completed.
[2019-11-27] VITALS: BP 136/63
--- NOTE | 2019-11-27 02:31 | NUR ---
PATIENT MEDICATED WITH TYLENOL PER PRN ORDER FOR C/O HEADACHE. SEE EMAR. REINFORCED USE OF CALL LIGHT.
--- NOTE | 2019-11-27 03:25 | NUR ---
PATIENT RESTING QUIETLY. NO FURTHER C/O VOICED.
[2019-11-27 08:00] VITALS: BP 147/85
--- NOTE | 2019-11-27 13:15 | NUR ---
Pt requested and given colace per prn order.
--- NOTE | 2019-11-27 15:56 | NUR ---
BSG WAS DONE X2. FIRST RESULT WAS 442, SECOND RESULT WAS 436. REVIEWING POLICY FOR RESULTS.
[2019-11-27 16:00] VITALS: BP 129/87
--- NOTE | 2019-11-27 16:00 | NUR ---
Dr. Weldon notified of blood sugar of 442. New orders received.
--- NOTE | 2019-11-27 23:47 | NUR ---
24 HR chart check completed.
[2019-11-28] VITALS: BP 148/78
[2019-11-28 06:34] LABS: HEMATOCRIT 39.6 % (37.0-47.0); MEAN CELL VOLUME 88.8 fl (81.0-99.0); MEAN CORPUSCULAR HGB CONC 31.6 g/dl (33.0-37.0); MEAN PLATELET VOLUME 12.1 fl (9.6-12.3); PLATELET COUNT AUTOMATED 225 10*3/uL (130-400); RED BLOOD COUNT 4.46 10*6/uL (4.10-5.10); RED CELL DISTRI WIDTH 14.8 % (0-14.5)
[2019-11-28 06:53] LABS: CREATININE 1.14 mg/dL (0.55-1.02); POTASSIUM 4.8 mmol/L (3.5-5.1)
[2019-11-28 07:09] LABS: TOTAL CELLS COUNTED 100 #CELLS
[2019-11-28 07:10] LABS: PLATELET SUFFICIENCY NORMAL (NORMAL); POLYCHROMASIA SLIGHT
[2019-11-28 08:00] VITALS: BP 155/76
--- NOTE | 2019-11-28 08:25 | NUR ---
NOTIFIED DR SIMMONS OF ESBL URINE RESULTS. NEW ORDERS RECEIVED.
[2019-11-28 12:00] VITALS: BP 158/69
--- NOTE | 2019-11-28 15:30 | NUR ---
PT RESTING IN CHAIR. RESPS EASY AND NON LABORED. NO S/S OF DISTRESS NOTED. VOICES NO CONCERNS AT THIS TIME. VSS. WHITE BOARD UPDATED. CALL LIGHT WITHIN REACH.
[2019-11-28 16:00] VITALS: BP 146/65
--- NOTE | 2019-11-28 17:43 | NUR ---
Shift chart check completed.
[2019-11-28 20:00] VITALS: BP 148/68
[2019-11-29] VITALS: BP 143/74
--- NOTE | 2019-11-29 02:52 | NUR ---
24 HR chart check completed.
--- NOTE | 2019-11-29 07:53 | NUR ---
Shift chart check completed.
[2019-11-29 08:00] VITALS: BP 125/64
[2019-11-29 16:00] VITALS: BP 150/75
--- NOTE | 2019-11-29 17:20 | NUR ---
PT STATES NO NEEDS AT THIS TIME.
--- NOTE | 2019-11-29 19:00 | NUR ---
ASSUMED CARE FOR THIS PT AT THIS TIME. PT SITITNG IN CHAIR IN ROOM. PT C/O FEELING SHAKY D/T STEROID USE. DENIES PAIN/SOB. CALL LIGHT IN REACH.
[2019-11-29 20:00] VITALS: BP 148/79
[2019-11-30] VITALS: BP 142/57
[2019-11-30 08:00] VITALS: BP 142/81
[2019-11-30] MEDS ORDERED: GLIPIZIDE XL10 M1 PO (08:21)
[2019-11-30] MEDS ORDERED: SEPTDS PO (08:22)
[2019-11-30] MEDS ORDERED: PREDNISONE5 MG PO (08:22)
--- NOTE | 2019-11-30 08:50 | NUR ---
PT AWARE DISCHARGE HOME TODAY, DAUGHTER UNABLE TO COME TO GET PATIENT UNTIL DAUGHTER IS DONE WITH WORK, AROUND 6PM.
--- NOTE | 2019-11-30 14:58 | NUR ---
Medical Services will fill nebulizer prescription and reach out to patient.
[2019-11-30 16:00] VITALS: BP 144/61
--- NOTE | 2019-11-30 18:51 | NUR ---
Discharge instructions reviewed with patient. Patient receptive and verbalizes understanding. Follow-up understand. Written instructions given to patient. iv removed. pt has no questions on discharge. awaiting daughter to arrive for cherry picker operator. KRISTINE BOO
== END 2019-11-30 18:52 | disposition home or self-care (01) | DRG 202 ==
LOC: ED 14:35 → EDHOLD 16:05 → 4E 16:05
PROVIDERS: Emergency Medicine; ADMIT Internal Medicine
DX: J45.41 Moderate persistent asthma with (acute) exacerbation (principal); E11.00 Type 2 diabetes mellitus with hyperosmolarity without nonketotic hyperglycemic-hyperosmolar coma (NKHHC); N39.0 Urinary tract infection, site not specified; N17.9 Acute kidney failure, unspecified; E87.2 Acidosis; Z68.41 Body mass index [BMI] 40.0-44.9, adult; J20.9 Acute bronchitis, unspecified; F41.1 Generalized anxiety disorder; N32.81 Overactive bladder; E11.22 Type 2 diabetes mellitus with diabetic chronic kidney disease; N18.9 Chronic kidney disease, unspecified; M48.061 Spinal stenosis, lumbar region without neurogenic claudication; N18.3 Chronic kidney disease, stage 3 (moderate); E66.01 Morbid (severe) obesity due to excess calories; Z66 Do not resuscitate; Z51.5 Encounter for palliative care; E11.649 Type 2 diabetes mellitus with hypoglycemia without coma; I12.9 Hypertensive chronic kidney disease with stage 1 through stage 4 chronic kidney disease, or unspecified chronic kidney disease; Z79.4 Long term (current) use of insulin

== ENCOUNTER 2020-04-21 21:09 | Emergency (ER) | payer OTHER ==
[~2020-04-21] VITALS: Ht 157.4 cm; Wt 102.1 kg
[~2020-04-21 21:09] MED LIST changes: +CEFUROXIME AXE250 MG PO; +OMEPRAZOLE MAGN20 MG PO; +SEPTDS PO
[2020-04-21 21:15] VITALS: BP 137/75
[2020-04-21 21:43] LABS: BILIRUBIN Negative (Negative); BLOOD 3+ (Negative); CLARITY Turbid (Clear); COLOR Yellow (Yellow); GLUCOSE Negative (Negative); KETONE Negative (Negative); LEUKO ESTERASE 3+ (Negative); NITRITE Positive (Negative); PH 5.5 (4.5-8.0); SPECIFIC GRAVITY 1.015 (1.001-1.030); UROBILINOGEN 0.2 E.U./dl (0.0-1.0)
[2020-04-21 22:07] LABS: BACTERIA 4+
[2020-04-21] MEDS ORDERED: CIPRO500 MG PO (23:09)
== END 2020-04-22 00:10 | disposition home or self-care (01) ==
LOC: ED 21:09
PROVIDERS: Internal Medicine
DX: N39.0 Urinary tract infection, site not specified (principal); F32.9 Major depressive disorder, single episode, unspecified; J45.909 Unspecified asthma, uncomplicated; I12.9 Hypertensive chronic kidney disease with stage 1 through stage 4 chronic kidney disease, or unspecified chronic kidney disease; E11.22 Type 2 diabetes mellitus with diabetic chronic kidney disease; N18.30 Chronic kidney disease, stage 3 unspecified; Z79.899 Other long term (current) drug therapy; Z79.82 Long term (current) use of aspirin

== ENCOUNTER → 2020-10-10 | Outpatient (CLI) | payer OTHER | END | disposition home or self-care (01) | LOC: US 10-07 14:00 → MAMMO 13:42 → US 14:30 | PROVIDERS: ATTEND Internal Medicine | DX: Z12.31 Encounter for screening mammogram for malignant neoplasm of breast (principal); R42 Dizziness and giddiness ==

== ENCOUNTER → 2021-02-03 | Outpatient (CLI) | payer OTHER ==
[~2021-02-03] MED LIST changes: +ALLOPURINOL100 MG PO; +Ipratropium Brom3 ML NEB; +KLONOPIN0.5 MG PO; +LANTUS SOL100 UNIT/1 SC; +LISINOPRIL5 MG PO; +MEDROL DOSEPAK4 MG PO; +MYCOLOG CREAM 115 GM T; +OZEMPIC0.25 MG/01 SQ; +PERCOCET 5-3251 EACH PO
== END | disposition home or self-care (01) ==
LOC: LAB 13:19
PROVIDERS: ATTEND Internal Medicine
DX: I21.9 Acute myocardial infarction, unspecified (principal); E11.65 Type 2 diabetes mellitus with hyperglycemia; M10.9 Gout, unspecified

== ENCOUNTER 2021-02-13 03:09 | Inpatient (IN) | payer OTHER ==
[~2021-02-13] VITALS: Ht 157.4 cm; Wt 97.2 kg
[2021-02-13] VITALS (8 sets, daily range): BP systolic 106–152; BP diastolic 50–90
[~2021-02-13 03:09] MED LIST changes: -ALLOPURINOL100 MG PO; -Ipratropium Brom3 ML NEB; -KLONOPIN0.5 MG PO; -LANTUS SOL100 UNIT/1 SC; -LISINOPRIL5 MG PO; -MEDROL DOSEPAK4 MG PO; -MYCOLOG CREAM 115 GM T; -OZEMPIC0.25 MG/01 SQ; -PERCOCET 5-3251 EACH PO
[2021-02-13 03:28] LABS: BASO # 0.1 10*3/uL (0.0-0.1); BASO % 1.1 % (0.0-1.0); EOS # 0.4 10*3/uL (0.0-0.4); EOS % 4.2 % (1.0-4.0); HEMATOCRIT 40.1 % (37.0-47.0); LYMPH # 1.9 10*3/uL (1.3-4.4); LYMPH % 22.6 % (27.0-41.0); MEAN CORPUSCULAR HGB 25.6 pg (27.0-31.0); MEAN CORPUSCULAR HGB CONC 31.2 g/dl (33.0-37.0); MEAN PLATELET VOLUME 12.3 fl (9.6-12.3); MONO # 0.7 10*3/uL (0.1-1.0); MONO % 8.7 % (3.0-9.0); NEUT # 5.2 10*3/uL (2.3-7.9); NEUT % 62.7 % (47.0-73.0); PLATELET COUNT AUTOMATED 247 10*3/uL (130-400); RED BLOOD COUNT 4.89 10*6/uL (4.10-5.10); RED CELL DISTRI WIDTH 16.2 % (0-14.5); WHITE BLOOD COUNT 8.3 10*3/uL (4.8-10.8)
[2021-02-13 03:44] LABS: ALBUMIN 3.2 gm/dl (3.1-4.5); CREATININE 1.58 mg/dL (0.55-1.02); POTASSIUM 4.8 mmol/L (3.5-5.1); TOTAL PROTEIN 6.8 gm/dL (6.4-8.2)
[2021-02-13 04:18] LABS: BILIRUBIN Negative (Negative); CLARITY Turbid (Clear); COLOR Yellow (Yellow); GLUCOSE 3+ (Negative); KETONE Negative (Negative); LEUKO ESTERASE 2+ (Negative); NITRITE Positive (Negative)
[2021-02-13 04:27] LABS: BLOOD 1+ (Negative); UROBILINOGEN 0.2 E.U./dl (0.0-1.0)
[2021-02-13 04:38] LABS: BACTERIA 4+
[2021-02-13 04:39] LABS: WBC TNTC wbc/hpf (0-5)
[2021-02-13] MEDS ORDERED: KLONOPIN0.5 MG PO (07:36)
[2021-02-13] MEDS ORDERED: LISINOPRIL5 MG PO (07:37)
[2021-02-13] MEDS ORDERED: OMEPRAZOLE40 MG PO (07:37)
[2021-02-13] MEDS ORDERED: ALLOPURINOL100 MG PO (07:38)
[2021-02-13] MEDS ORDERED: LANTUS SOL100 UNIT/1 SC (07:38)
[2021-02-13] MEDS ORDERED: Ipratropium Brom3 ML NEB (07:39)
[2021-02-13] MEDS ORDERED: MYCOLOG CREAM 115 GM T (07:39)
[2021-02-13] MEDS ORDERED: OZEMPIC0.25 MG/01 SQ (07:40)
[2021-02-14] VITALS: BP 133/68
[2021-02-14 06:44] LABS: CREATININE 1.12 mg/dL (0.55-1.02); POTASSIUM 4.5 mmol/L (3.5-5.1)
[2021-02-14 08:00] VITALS: BP 156/74
[2021-02-14 16:00] VITALS: BP 112/58
[2021-02-14 20:00] VITALS: BP 134/61
[2021-02-15] VITALS: BP 141/60
[2021-02-15 06:28] LABS: BUN 23 mg/dl (7-24); CHLORIDE 110 mmol/L (98-107); CREATININE 1.02 mg/dL (0.55-1.02); POTASSIUM 4.3 mmol/L (3.5-5.1); SODIUM 139 mmol/L (136-145)
[2021-02-15 08:00] VITALS: BP 149/74
[2021-02-15] MEDS ORDERED: AUGMENTIN 875-875 MG PO (09:45)
[2021-02-15 12:00] VITALS: BP 150/64
[2021-02-15 16:00] VITALS: BP 140/70
== END 2021-02-15 21:06 | disposition home or self-care (01) | DRG 690 ==
LOC: ED 03:09 → 5E 06:06 → EDHOLD 06:06 → 5E 07:34
PROVIDERS: Internal Medicine; ADMIT Internal Medicine; ATTEND Internal Medicine
DX: N39.0 Urinary tract infection, site not specified (principal); N17.9 Acute kidney failure, unspecified; B96.20 Unspecified Escherichia coli [E. coli] as the cause of diseases classified elsewhere; J45.40 Moderate persistent asthma, uncomplicated; E11.65 Type 2 diabetes mellitus with hyperglycemia; E11.22 Type 2 diabetes mellitus with diabetic chronic kidney disease; I12.9 Hypertensive chronic kidney disease with stage 1 through stage 4 chronic kidney disease, or unspecified chronic kidney disease; F41.1 Generalized anxiety disorder; E78.2 Mixed hyperlipidemia; N18.30 Chronic kidney disease, stage 3 unspecified; I95.1 Orthostatic hypotension

== ENCOUNTER 2021-03-10 22:02 | Emergency (ER) | payer OTHER ==
[~2021-03-10 22:02] MED LIST changes: +ALLOPURINOL100 MG PO; +Ipratropium Brom3 ML NEB; +KLONOPIN0.5 MG PO; +LANTUS SOL100 UNIT/1 SC; +LISINOPRIL5 MG PO; +MYCOLOG CREAM 115 GM T; +OZEMPIC0.25 MG/01 SQ
[2021-03-10 22:14] VITALS: BP 122/77
[2021-03-10] MEDS ORDERED: MEDROL DOSEPAK4 MG PO (23:16)
== END 2021-03-11 01:55 | disposition home or self-care (01) ==
LOC: ED 22:02
DX: M10.9 Gout, unspecified (principal); Z79.899 Other long term (current) drug therapy; Z79.82 Long term (current) use of aspirin; Z79.4 Long term (current) use of insulin

== ENCOUNTER 2021-03-15 18:55 | Emergency (ER) | payer OTHER ==
[~2021-03-15 18:55] MED LIST changes: +MEDROL DOSEPAK4 MG PO
[2021-03-15 18:59] VITALS: BP 156/98
[2021-03-15] MEDS ORDERED: PERCOCET 5-3251 EACH PO (19:19)
== END 2021-03-15 19:30 | disposition home or self-care (01) ==
LOC: ED 18:55
DX: M10.9 Gout, unspecified (principal); Z79.899 Other long term (current) drug therapy; Z79.4 Long term (current) use of insulin

== ENCOUNTER 2021-04-23 11:08 | Emergency (ER) | payer OTHER ==
[~2021-04-23] VITALS: Ht 157.4 cm; Wt 98.4 kg
[~2021-04-23 11:08] MED LIST changes: +PERCOCET 5-3251 EACH PO
[2021-04-23 12:07] LABS: BASO # 0.1 10*3/uL (0.0-0.1); BASO % 0.8 % (0.0-1.0); EOS # 0.3 10*3/uL (0.0-0.4); EOS % 4.2 % (1.0-4.0); HEMATOCRIT 35.4 % (37.0-47.0); LYMPH % 15.9 % (27.0-41.0); MEAN CELL VOLUME 80.8 fl (81.0-99.0); MEAN CORPUSCULAR HGB 24.4 pg (27.0-31.0); MEAN CORPUSCULAR HGB CONC 30.2 g/dl (33.0-37.0); MEAN PLATELET VOLUME 10.6 fl (9.6-12.3); MONO # 0.5 10*3/uL (0.1-1.0); MONO % 8.3 % (3.0-9.0); NEUT # 4.5 10*3/uL (2.3-7.9); NEUT % 70.2 % (47.0-73.0); PLATELET COUNT AUTOMATED 268 10*3/uL (130-400); RED BLOOD COUNT 4.38 10*6/uL (4.10-5.10); RED CELL DISTRI WIDTH 15.9 % (0-14.5); WHITE BLOOD COUNT 6.4 10*3/uL (4.8-10.8)
[2021-04-23 12:23] LABS: ALBUMIN 2.6 gm/dl (3.1-4.5); CREATININE 1.37 mg/dL (0.55-1.02); POTASSIUM 4.1 mmol/L (3.5-5.1); TOTAL PROTEIN 6.9 gm/dL (6.4-8.2); URIC ACID 7.1 mg/dL (2.6-6.0)
== END 2021-04-23 13:26 | disposition left against medical advice (07) ==
LOC: ED 11:08
PROVIDERS: Student in an Organized Health Care Education/Training Program
DX: M13.842 Other specified arthritis, left hand (principal); Z79.899 Other long term (current) drug therapy

== ENCOUNTER 2021-04-24 01:20 | Emergency (ER) | payer OTHER ==
[~2021-04-24] VITALS: Ht 157.4 cm; Wt 98.4 kg
[2021-04-24 02:20] VITALS: BP 156/91
== END 2021-04-24 04:49 | disposition home or self-care (01) ==
LOC: ED 01:20
DX: M10.9 Gout, unspecified (principal); E11.9 Type 2 diabetes mellitus without complications; I10 Essential (primary) hypertension; M19.90 Unspecified osteoarthritis, unspecified site; J45.909 Unspecified asthma, uncomplicated; Z79.899 Other long term (current) drug therapy; Z79.82 Long term (current) use of aspirin; Z79.4 Long term (current) use of insulin

== ENCOUNTER 2021-07-25 17:49 | Inpatient (IN) | payer OTHER ==
[~2021-07-25] VITALS: Ht 157 cm; Wt 90.5 kg
[2021-07-25 18:10] VITALS: BP 122/99
[2021-07-25 19:37] LABS: BASO # 0.1 10*3/uL (0.0-0.1); EOS # 0.4 10*3/uL (0.0-0.4); EOS % 4.8 % (1.0-4.0); HEMATOCRIT 42.7 % (37.0-47.0); LYMPH # 1.7 10*3/uL (1.3-4.4); LYMPH % 20.3 % (27.0-41.0); MEAN CELL VOLUME 79.2 fl (81.0-99.0); MEAN CORPUSCULAR HGB 24.5 pg (27.0-31.0); MEAN CORPUSCULAR HGB CONC 30.9 g/dl (33.0-37.0); MEAN PLATELET VOLUME 10.6 fl (9.6-12.3); MONO # 0.7 10*3/uL (0.1-1.0); NEUT # 5.3 10*3/uL (2.3-7.9); NEUT % 65.2 % (47.0-73.0); PLATELET COUNT AUTOMATED 271 10*3/uL (130-400); RED BLOOD COUNT 5.39 10*6/uL (4.10-5.10); RED CELL DISTRI WIDTH 16.9 % (0-14.5); WHITE BLOOD COUNT 8.1 10*3/uL (4.8-10.8)
[2021-07-25 19:57] LABS: ALBUMIN 2.9 gm/dl (3.1-4.5); BUN 17 mg/dl (7-24); CHLORIDE 108 mmol/L (98-107); CREATININE 0.98 mg/dL (0.55-1.02); SGOT/AST 8 IU/L (3-35); SGPT/ALT 18 U/L (12-78); SODIUM 139 mmol/L (136-145)
[2021-07-25 19:59] LABS: ALKALINE PHOSPHATASE 141 U/L (45-117)
[2021-07-25 20:41] LABS: BILIRUBIN Negative (Negative); BLOOD Trace-Lysed (Negative); CLARITY Clear (Clear); COLOR Yellow (Yellow); GLUCOSE Trace (Negative); KETONE Negative (Negative); LEUKO ESTERASE 2+ (Negative); NITRITE Positive (Negative); UROBILINOGEN 0.2 E.U./dl (0.0-1.0)
[2021-07-25 21:02] LABS: BACTERIA 4+; WBC TNTC wbc/hpf (0-5)
[2021-07-26] MEDS ORDERED: ZYLOPRIM100 MG PO ×2 (09:22→10:26)
[2021-07-26] MEDS ORDERED: AMITRIPTYLINE25 MG PO (09:22)
[2021-07-26] MEDS ORDERED: ATARAX,VISTARIL10 MG PO (09:24)
[2021-07-26 09:32] VITALS: BP 129/85
[2021-07-26 16:00] VITALS: BP 125/54
[2021-07-27 08:00] VITALS: BP 151/82
[2021-07-27 12:00] VITALS: BP 145/59
[2021-07-27 16:00] VITALS: BP 121/96
[2021-07-27 20:00] VITALS: BP 126/64
[2021-07-28] VITALS: BP 114/58
[2021-07-28 08:00] VITALS: BP 154/82
[2021-07-28] MEDS ORDERED: LEVOFLOXACIN500 MG PO (08:55)
[2021-07-28] MEDS ORDERED: GLIPIZIDE5 M1 PO (08:55)
[2021-07-28] MEDS ORDERED: Lantus SC (08:57)
[2021-07-28 12:00] VITALS: BP 121/71
== END 2021-07-28 18:44 | disposition home or self-care (01) | DRG 689 ==
LOC: ED 17:49 → EDHOLD 21:15 → 5E 21:15
PROVIDERS: Internal Medicine; ADMIT Internal Medicine; ATTEND Internal Medicine
DX: N39.0 Urinary tract infection, site not specified (principal); G93.41 Metabolic encephalopathy; E44.1 Mild protein-calorie malnutrition; B96.1 Klebsiella pneumoniae [K. pneumoniae] as the cause of diseases classified elsewhere; R62.7 Adult failure to thrive; N81.10 Cystocele, unspecified; M48.00 Spinal stenosis, site unspecified; F41.1 Generalized anxiety disorder; E11.22 Type 2 diabetes mellitus with diabetic chronic kidney disease; N18.31 Chronic kidney disease, stage 3a; E88.09 Other disorders of plasma-protein metabolism, not elsewhere classified; Z79.4 Long term (current) use of insulin; Z91.19 Patient's noncompliance with other medical treatment and regimen

== ENCOUNTER 2021-10-12 04:04 | Emergency (ER) | payer OTHER ==
[~2021-10-12] VITALS: Ht 157.4 cm; Wt 86.2 kg
[~2021-10-12 04:04] MED LIST changes: +ACETAMINOPHEN500 M5 PO; +ATARAX,VISTARIL10 MG PO; +FLUCONAZOLE100 MG PO; +GLIPIZIDE5 M1 PO; +LEVOFLOXACIN500 MG PO; +Lantus SC
[2021-10-12 04:05] VITALS: BP 108/67
[2021-10-12] MEDS ORDERED: NAPROSYN EC375 MG PO (05:21)
[2021-10-12] MEDS ORDERED: PREDNISONE50 MG PO (05:21)
== END 2021-10-12 05:47 | disposition home or self-care (01) ==
LOC: ED 04:04
DX: M10.9 Gout, unspecified (principal); Z79.899 Other long term (current) drug therapy; Z79.82 Long term (current) use of aspirin

== ENCOUNTER 2022-04-02 14:20 | Emergency (ER) | payer OTHER ==
[~2022-04-02] VITALS: Ht 157.4 cm; Wt 90.7 kg
[~2022-04-02 14:20] MED LIST changes: +NAPROSYN EC375 MG PO; +PREDNISONE50 MG PO
[2022-04-02 14:23] VITALS: BP 128/70
== END 2022-04-02 17:03 | disposition home or self-care (01) ==
LOC: ED 14:20
DX: S62.514A Nondisplaced fracture of proximal phalanx of right thumb, initial encounter for closed fracture (principal); Z79.899 Other long term (current) drug therapy; Z79.82 Long term (current) use of aspirin; W18.39XA Other fall on same level, initial encounter; Y93.89 Activity, other specified; Y92.89 Other specified places as the place of occurrence of the external cause; Y99.8 Other external cause status